=== PATIENT | female | born 1960 | race African-American/Black ===

== ENCOUNTER 2019-07-09 15:00 | Inpatient (IN) | payer MEDICAID ==
[~2019-07-09] VITALS: Ht 165.1 cm; Wt 69.8 kg
[2019-07-09] MEDS ORDERED: ASPirin 81 mg TAB PO ONE (15:30)
[2019-07-09 16:14] LABS: Hemoglobin 9.5 g/dL (12.2-16.2)
[2019-07-09 16:15] LABS: Hematocrit 29.2 % (36.0-46.0); Mean Corpuscular Hemoglobin 30.4 pg (28.0-32.0); Mean Corpuscular Hgb Conc. 32.7 g/dL (32.0-36.0); Mean Corpuscular Volume 93.1 fL (80.0-100.0); Platelet Count (auto) 55 10^3/uL (140-450); Red Blood Cells 3.13 10^6/uL (4.0-5.20); White Blood Cell 12.1 10^3/uL (4.4-10.8)
[2019-07-09 16:25] LABS: Alanine Aminotransferase 25 U/L (13-56); Albumin 2.3 g/dL (3.4-5.0); Anion Gap 10 (5-15); Aspartate Aminotransferase 121 U/L (15-37); BUN/Creatinine Ratio 22.4; Basophils % (manual) 0 (0.0-2.0); Blast Cells 0; Blood Urea Nitrogen 19 mg/dL (7-18); Carbon Dioxide 25 mmol/L (21-32); Chloride 103 mmol/L (98-107); Eosinophils % (manual) 0 (0-7); GFR African American 88 mL/min; GFR Non-African American 73 mL/min; Glucose 78 mg/dL (74-106); Magnesium 2.3 mg/dL (1.6-2.6); Myelocytes % 0; Potassium 4.1 mmol/L (3.5-5.1); Promyelocytes % 0; Reactive Lymphocytes 0; Sodium 138 mmol/L (136-145)
[2019-07-09 16:28] LABS: Alkaline Phosphatase 314 U/L (45-117); Bilirubin, Total 1.5 mg/dL (0.2-1.0); Total Protein 7.4 g/dL (6.4-8.2)
[2019-07-09 16:33] LABS: INR 1.51 (0.9-1.15); Partial Thromboplastin Time 32.2 sec (23.64-32.05)
[2019-07-09 17:01] LABS: Calcium 14.1 mg/dL (8.5-10.1)
[2019-07-09 17:24] LABS: Band Neutrophils % (manual) 1; Monocytes % (manual) 4 (0-12)
[2019-07-09 17:29] LABS: Lymphocytes % (manual) 54 (10.0-50.0); Metamyelocytes % 1
[2019-07-09] MEDS ORDERED: SODIUM CHLORIDE 0.9% 1,000 ML IV ONE (18:45)
[2019-07-09] MEDS ORDERED: NITROGLYCERIN 0.4 MG SL TAB SL PRN (19:15)
[2019-07-09] MEDS ORDERED: ACETAMINOPHEN 500 MG TAB PO PRN (19:15)
[2019-07-09] MEDS ORDERED: MORPHINE SULF INJ 2 MG/ML SYRINGE 1ML IV PRN ×2 (19:15)
[2019-07-09] MEDS: SODIUM CHLORIDE 0.9% 1,000 ML IV SCH (19:46)
[2019-07-09] MEDS: ONDANSETRON HCL 4 MG/2 ML VIAL IV PRN (20:32)
[2019-07-09] MEDS: PIPERACILLIN-TAZO 4.5GM 100 ML IV SCH (22:06)
[2019-07-09] MEDS: METOPROLOL TARTRATE 50 MG TAB PO SCH (22:08)
[2019-07-09 23:38] VITALS: BP 124/71
--- NOTE | 2019-07-09 23:38 | NUR ---
Admit to [facility] Blankenship admitted to [facility] via gurney on telemetry monitor, and portable 02. Patient transferred to bed, connected to unit monitoring and oxygen, and weighed by bed scale. Patient oriented to Aimee hoang RN, unit, room, bed, and unit policies regarding patient care and visiting hours. All questions and concerns addressed, patient verbalized understanding. NOTE: PATIENT IS AWAKE, ALERT AND ORIENTED X4. REPORTS SOB. ON 4L N/C POX 96%. PHYSICAL ASSESSMENT COMPLETED, SEE INTERVENTIONS. NO OPEN WOUNDS.
[2019-07-10] MEDS: SODIUM CHLORIDE 0.9% 1,000 ML IV SCH (01:52)
[2019-07-10 04:00] VITALS: BP 110/59
[2019-07-10] MEDS: PIPERACILLIN-TAZO 4.5GM 100 ML IV SCH ×3 (05:46→21:47)
[2019-07-10 07:53] VITALS: BP 102/66
--- NOTE | 2019-07-10 08:00 | NUR ---
Opening Shift Note Assumed care of patient, awake and alert. SOB on exertion, saturation 95% at 4 LPM oxygen via nasal cannula. See interventions for complete assessment. Bed locked on low position, side rails up x2, bed alarms on at all times, call velasquez within reach, instructed on POC and to call for assist PRN, will continue to monitor for changes Q1hr and PRN.
[2019-07-10 10:32] LABS: Hematocrit 28.2 % (36.0-46.0); Platelet Count (auto) 45 10^3/uL (140-450)
--- NOTE | 2019-07-10 10:36 | NUR ---
Dr Hernandez at bedside, updated on patient's status. Patient seen and examined. Received verbal order to give patient Zometa 4 mg IV once. Orders read back and verified. Will carry out.
[2019-07-10 10:39] LABS: Basophils % (manual) 0 (0.0-2.0); Blast Cells 0; Metamyelocytes % 0; Myelocytes % 0; Promyelocytes % 0; Reactive Lymphocytes 0; Red Cell Distribution Width 28.6 % (11.8-14.3)
[2019-07-10 10:40] LABS: Albumin 2.3 g/dL (3.4-5.0); Potassium 3.5 mmol/L (3.5-5.1)
--- NOTE | 2019-07-10 10:40 | NUR ---
Received call from patient's daughter Mark who is able to provide password. Updated on patient's status and POC, verbalized understanding. All questions and concerns addressed.
[2019-07-10] MEDS ORDERED: ZOLEDRONIC ACID 4 MG in SODIUM CHL 0.9% 100 ML IV ONE (10:45)
[2019-07-10 10:47] LABS: INR 1.59 (0.9-1.15); Partial Thromboplastin Time 37.1 sec (23.64-32.05)
[2019-07-10 10:52] LABS: BUN/Creatinine Ratio 21.4; Bilirubin, Total 1.6 mg/dL (0.2-1.0); Phosphorus 2.8 mg/dL (2.5-4.90)
[2019-07-10 11:00] LABS: Band Neutrophils % (manual) 1; Eosinophils % (manual) 1 (0-7); Lymphocytes % (manual) 46 (10.0-50.0); Monocytes % (manual) 7 (0-12)
[2019-07-10 11:02] LABS: Calcium 13.9 mg/dL (8.5-10.1)
[2019-07-10] MEDS: METOPROLOL TARTRATE 50 MG TAB PO SCH (11:17)
[2019-07-10] MEDS: FAMOTIDINE 20 MG TAB PO SCH (11:17)
--- NOTE | 2019-07-10 11:18 | NUR ---
Awaiting for pharmacy to send Zometa, called pharmacy and spoke to Margie.
[2019-07-10 11:23] LABS: White Blood Cell 6.2 10^3/uL (4.4-10.8)
[2019-07-10 11:49] VITALS: BP 122/75
--- NOTE | 2019-07-10 14:00 | NUR ---
Authorization for use or disclosure of health information faxed to [facility] by community arts worker Shauna.
--- NOTE | 2019-07-10 15:06 | NUR ---
Paged Dr Hillary Mosquera regarding patient's increasing SOB, RR 30's, chest xray report showing increasing pleural effusion. Awaiting call back.
--- NOTE | 2019-07-10 15:15 | NUR ---
Received call from Dr Hillary Mosquera, updated on patient's status, informed of patient SOB and respiratory status. verbalized understanding and states "Let me open my computer and I will call you back."
[2019-07-10 15:52] VITALS: BP 112/66
[2019-07-10] MEDS ORDERED: SODIUM CHLORIDE 0.9% 1,000 ML IV SCH (16:15)
[2019-07-10] MEDS ORDERED: FUROSEMIDE 20 MG/2 ML VIAL IV ONE (16:15)
[2019-07-10] MEDS: METOPROLOL TARTRATE 25 MG TAB PO SCH ×2 (16:15→21:48)
--- NOTE | 2019-07-10 16:15 | NUR ---
Received call from Dr Mosquera, updated on patient's respiratory status. Will carry out new orders.
[2019-07-10] MEDS ORDERED: FUROSEMIDE 100 MG/10ML VIAL IV ONE (16:45)
--- NOTE | 2019-07-10 17:28 | NUR ---
Patient refused blood draw at this time, will try after an hour.
--- NOTE | 2019-07-10 18:30 | NUR ---
Paged Dr Lam regarding patient's ABG result and respiratory status. Awaiting call back.
--- NOTE | 2019-07-10 18:50 | NUR ---
Med rec done, information obtained from daughter Mark.
[2019-07-10] MEDS ORDERED: PROM25TA5 PO (18:51)
[2019-07-10] MEDS ORDERED: CARV3.1240 PO (18:52)
[2019-07-10] MEDS ORDERED: ALBU0.084 NEB (18:53)
--- NOTE | 2019-07-10 19:00 | NUR ---
Received call from Dr Lam, updated on patient's status. Informed of patient's SOB, RR 30's, ABG result, chest xray. MD verbalized understanding and states "I will see patient in the morning."
[2019-07-10 19:13] LABS: Hemoglobin 9.2 g/dL (12.2-16.2)
[2019-07-10 19:15] LABS: Hematocrit 28.4 % (36.0-46.0); Mean Corpuscular Hemoglobin 30.5 pg (28.0-32.0); Mean Corpuscular Hgb Conc. 32.5 g/dL (32.0-36.0); Mean Corpuscular Volume 93.8 fL (80.0-100.0); Platelet Count (auto) 46 10^3/uL (140-450); Red Blood Cells 3.02 10^6/uL (4.0-5.20)
[2019-07-10 19:19] LABS: Red Cell Distribution Width 28.2 % (11.8-14.3)
[2019-07-10 19:22] LABS: Basophils % (manual) 0 (0.0-2.0); Blast Cells 0; Metamyelocytes % 0; Myelocytes % 0; Promyelocytes % 0; Reactive Lymphocytes 0
[2019-07-10 19:31] LABS: Potassium 3.4 mmol/L (3.5-5.1)
[2019-07-10 19:34] LABS: Albumin 2.2 g/dL (3.4-5.0); BUN/Creatinine Ratio 21.1
[2019-07-10 19:37] LABS: Bilirubin, Total 1.7 mg/dL (0.2-1.0); Total Protein 7.1 g/dL (6.4-8.2)
[2019-07-10 19:41] LABS: Calcium 14.1 mg/dL (8.5-10.1)
[2019-07-10 20:00] VITALS: BP 152/84
--- NOTE | 2019-07-10 20:00 | NUR ---
SHIFT OPENING NOTE RECEIVED PATIENT LAYING IN BED WITH EYES CLOSED. APPEARS LETHARGIC BUT OPENS EYES WITH LIGHT TOUCH. ALERT AND ORIENTED X4 WITH PERIODS OF CONFUSION. SOB NOTED ON 4L N/C DIMINISHED LUNG SOUNDS. DUFF CATH INFUSING YELLOW URINE TO GRAVITY. INSTRUCTED ON POC AND TO CALL FOR ASSIST NEEDED. BED IS IN THE LOWEST POSITION WITH SIDE RAILS UP X2, CALL LIGHT IS WITHIN REACH.
[2019-07-10] MEDS ORDERED: POTASSIUM CHL 20 Meq TABLET PO ONE (20:15)
[2019-07-10] MEDS ORDERED: methylPREDNISolone SOD SUCC 125 MG/2 ML VL IV ONE (20:15)
[2019-07-10] MEDS ORDERED: IPRATROPIUM BROM 0.5 MG/2.5ML INH SOL NEB PRN (20:15)
[2019-07-10 20:27] VITALS: BP 112/66
[2019-07-10 20:34] LABS: Band Neutrophils % (manual) 1; Lymphocytes % (manual) 45 (10.0-50.0)
[2019-07-10 20:35] LABS: Eosinophils % (manual) 3 (0-7); Monocytes % (manual) 3 (0-12)
[2019-07-10] MEDS: ATORVASTATIN 20 MG TAB PO SCH (21:48)
[2019-07-10] MEDS ORDERED: POTASSIUM CHL 20 Meq TABLET PO SCH (22:00)
[2019-07-10 22:17] LABS: Albumin 2.2 g/dL (3.4-5.0); Potassium 3.3 mmol/L (3.5-5.1)
[2019-07-10 22:30] LABS: Bilirubin, Total 1.7 mg/dL (0.2-1.0); Total Protein 7.1 g/dL (6.4-8.2)
[2019-07-10] MEDS ORDERED: ALBUTEROL SULF 2.5 MG/0.5ML(0.5%) NEB SOLN NEB PRN (22:45)
[2019-07-10 23:03] LABS: BUN/Creatinine Ratio 21.6
[2019-07-10] MEDS: LEVALBUTEROL HCL 1.25 MG/3 ML NEB NEB SCH (23:45)
--- NOTE | 2019-07-10 23:47 | NUR ---
RT NOTE PT WAS SEEN BY RT FOR HHN TX. PT TOLERATES WELL VIA MASK. NO ADVERSE REACTION NOTED. CONT ORDERED. Addendum: 07/10/19 at 2348 by Danni Rogers RT Amended: Links added.
[2019-07-11 00:03] VITALS: BP 137/77
--- NOTE | 2019-07-11 01:00 | NUR ---
ROUNDS PATIENT IS QUIETLY LAYING IN BED SLEEPING. NO SOB, DISTRESS OR PAIN NOTED. WILL CONTINUE TO CLOSELY MONITOR.
[2019-07-11 03:52] VITALS: BP 122/73
--- NOTE | 2019-07-11 05:20 | NUR ---
LAB UNABLE TO DRAW PATIENT WILL COME BACK LATER TO ATTEMPT AGAIN
[2019-07-11] MEDS: PIPERACILLIN-TAZO 4.5GM 100 ML IV SCH ×3 (05:33→21:12)
--- NOTE | 2019-07-11 05:35 | NUR ---
MORNING HYGIENE CARE FULL BED BATH PERFORMED USING WARM SOAPY WASH CLOTHES. GOWN CHANGED. DUFF AND GEREMIAS CARE DONE. PARTIAL LINEN CHANGED. PATIENT REPOSITIONED FOR COMFORT. TOLERATED IT WELL.
--- NOTE | 2019-07-11 06:55 | NUR ---
END OF SHIFT PATIENT IS QUIETLY LAYING IN BED SLEEPING. NO SOB OR DISTRESS NOTED. WILL GIVE REPORT AND ENDORSE CARE TO THE DAY SHIFT RN.
[2019-07-11] MEDS: LEVALBUTEROL HCL 1.25 MG/3 ML NEB NEB SCH ×3 (06:56→18:40)
[2019-07-11 07:45] VITALS: BP 104/60
--- NOTE | 2019-07-11 07:45 | NUR ---
OPENING SHIFT NOTE: Received report from NOC RNMony. Assumed care of patient. Received patient lying in bed, sleeping, connected to bedside monitor with no s/s of distress noted. Patient is lethargic, but responds to name and answers questions appropriately. Patient on 4L NC with O2 sats 94%. Menezes catheter in place draining to gravity yellow urine. Lt wrist #22 PIV with antibiotic infusing and appears asymptomatic and intact. Flushes well and is patent. Bed is in lowest position, rails x3 up and call light within reach. Updated on plan of care. Will continue to monitor q1hr/prn.
[2019-07-11 09:37] LABS: Hematocrit 29.3 % (36.0-46.0); Hemoglobin 9.4 g/dL (12.2-16.2); Mean Corpuscular Hemoglobin 30.6 pg (28.0-32.0); Mean Corpuscular Hgb Conc. 32.1 g/dL (32.0-36.0); Mean Corpuscular Volume 95.3 fL (80.0-100.0); Platelet Count (auto) 42 10^3/uL (140-450); Red Blood Cells 3.07 10^6/uL (4.0-5.20)
--- NOTE | 2019-07-11 09:37 | NUR ---
Dr Fernandez at bedside to see patient. Orders received.
--- NOTE | 2019-07-11 09:56 | NUR ---
Pau, electronic development technician at bedside.
[2019-07-11] MEDS: FAMOTIDINE 20 MG TAB PO SCH (10:00)
[2019-07-11] MEDS: METOPROLOL TARTRATE 25 MG TAB PO SCH ×2 (10:00→21:13)
[2019-07-11 10:27] LABS: Red Cell Distribution Width 28.3 % (11.8-14.3)
[2019-07-11 10:29] LABS: White Blood Cell 7.1 10^3/uL (4.4-10.8)
[2019-07-11 10:30] LABS: Basophils % (manual) 0 (0.0-2.0); Blast Cells 0; Myelocytes % 0; Promyelocytes % 0; Reactive Lymphocytes 0
[2019-07-11 10:35] LABS: Band Neutrophils % (manual) 2; Eosinophils % (manual) 4 (0-7); Lymphocytes % (manual) 51 (10.0-50.0); Metamyelocytes % 1; Monocytes % (manual) 4 (0-12)
[2019-07-11] MEDS: SODIUM CHLORIDE 0.9% 1,000 ML IV SCH ×2 (11:00→17:40)
[2019-07-11] MEDS ORDERED: FUROSEMIDE 100 MG/10ML VIAL IV ONE (11:00)
[2019-07-11] MEDS ORDERED: POTASSIUM CHL 20 Meq TABLET PO ONE (11:15)
--- NOTE | 2019-07-11 11:30 | NUR ---
[place] US at bedside.
[2019-07-11 11:45] VITALS: BP 123/73
--- NOTE | 2019-07-11 11:45 | NUR ---
Notified by US [place] that patient has enough fluid for thoracentesis. Will attempt to get consent from patient or daughter if patient is unable to.
--- NOTE | 2019-07-11 11:45 | NUR ---
Dr Krzysztof Mosquera at bedside to see patient. Orders received.
[2019-07-11] MEDS: POTASSIUM CHL 20 Meq TABLET PO SCH (12:09)
--- NOTE | 2019-07-11 12:34 | NUR ---
CARLTON Dillon RN at bedside. Attempting to get consent for thoracentesis. Patient verbally agrees, but unable to sign paper. Telephone consent then obtained from daughter, Mark Moya.
[2019-07-11] MEDS ORDERED: diphenhdrAMINE HCL 50 MG/1 ML VL IV ONE (13:00)
--- NOTE | 2019-07-11 13:13 | NUR ---
Patient refused thoracentesis. Stated she has cancer and doesn't want any thing done. Left message with Dr Krzysztof Mosquera to inform
--- NOTE | 2019-07-11 13:15 | NUR ---
T/C to patient's daughter, updated her on patient's refusal of thoracentesis. Asked patient's daughter if she ever had any discussion about patient wanting to have a breathing tube or not. Daughter was unaware. Informed daughter that physicians may call and discuss plans of care with her.
--- NOTE | 2019-07-11 13:23 | NUR ---
T/C from Dr Krzysztof Mosquera. Updated MD on patient's refusal of thoracentesis and phone call with patient's daughter. MD states will call patient's daughter and discuss plan of care later.
--- NOTE | 2019-07-11 13:31 | NUR ---
US tech at bed to do lower extremity venous study to r/t DVT.
[2019-07-11 15:45] VITALS: BP 101/67
--- NOTE | 2019-07-11 17:00 | NUR ---
Spoke to Dr Krzysztof Mosquera who stated he spoke with daughter and wishes to keep patient FULL code.
[2019-07-11] MEDS: FUROSEMIDE 100 MG/10ML VIAL IV SCH (19:15)
--- NOTE | 2019-07-11 19:24 | NUR ---
CLOSING SHIFT NOTE: Patient sitting in bed, calling out for help. Patient states she feels like she's going crazy but can't further elaborate. Patient unable to tell nursing where she is at and the situation. Report given to NOC Mony GOMEZ. Endorsed care of patient.
--- NOTE | 2019-07-11 19:55 | NUR ---
SHIFT OPENING NOTE RECEIVED PATIENT LAYING IN BED WITH EYES CLOSED. APPEARS LETHARGIC BUT OPENS EYES WITH LIGHT TOUCH. ALERT AND ORIENTED X4 WITH PERIODS OF CONFUSION. SOB NOTED ON 6L N/C DIMINISHED LUNG SOUNDS. DUFF CATH INFUSING YELLOW URINE TO GRAVITY. INSTRUCTED ON POC AND TO CALL FOR ASSIST NEEDED. BED IS IN THE LOWEST POSITION WITH SIDE RAILS UP X2, CALL LIGHT IS WITHIN REACH.
[2019-07-11 20:00] VITALS: BP 123/67
[2019-07-11] MEDS: ATORVASTATIN 20 MG TAB PO SCH (21:12)
[2019-07-12] VITALS: BP 124/67
[2019-07-12] MEDS: LEVALBUTEROL HCL 1.25 MG/3 ML NEB NEB SCH ×4 (01:08→18:19)
[2019-07-12 04:00] VITALS: BP 99/55
[2019-07-12 04:47] LABS: Basophils # (auto) 0.1 10 ^3/uL (0-0.2); Basophils % (auto) 0.8 % (0.0-2.0); Eosinophils # (auto) 0.2 10 ^3/uL (0-0.8); Eosinophils % (auto) 1.2 % (0.0-7.0); Hematocrit 25.9 % (36.0-46.0); Hemoglobin 8.2 g/dL (12.2-16.2); Lymphocytes # (auto) 5.2 10 ^3/uL (0.4-5.4); Mean Corpuscular Hemoglobin 29.6 pg (28.0-32.0); Mean Corpuscular Hgb Conc. 31.7 g/dL (32.0-36.0); Mean Corpuscular Volume 93.5 fL (80.0-100.0); Monocytes # (auto) 1.4 10 ^3/uL (0-1.3); Neutrophils # (auto) 7.2 10 ^3/uL (1.6-8.6); Platelet Count (auto) 47 10^3/uL (140-450); Red Blood Cells 2.76 10^6/uL (4.0-5.20); White Blood Cell 14.2 10^3/uL (4.4-10.8)
[2019-07-12 04:48] LABS: Nucleated Red Blood Cells % 25.6 %; Red Cell Distribution Width 28.4 % (11.8-14.3)
[2019-07-12] MEDS: SODIUM CHLORIDE 0.9% 1,000 ML IV SCH ×2 (04:51→04:53)
[2019-07-12] MEDS: FUROSEMIDE 100 MG/10ML VIAL IV SCH ×2 (04:52→18:39)
[2019-07-12] MEDS: PIPERACILLIN-TAZO 4.5GM 100 ML IV SCH ×3 (04:52→22:49)
--- NOTE | 2019-07-12 07:10 | NUR ---
END OF SHIFT PATIENT IS QUIETLY LAYING IN BED SLEEPING. NO SOB OR DISTRESS NOTED. WILL GIVE REPORT AND ENDORSE CARE TO THE DAY SHIFT RN.
--- NOTE | 2019-07-12 07:30 | NUR ---
OPENING SHIFT NOTE: Received report from NOC RNMony. Assumed care of patient. Received patient lying in bed, sleeping, connected to bedside monitor with no s/s of distress noted. Patient is lethargic, but responds to name and answers questions appropriately. Patient on 6L NC with O2 sats 95%. Menezes catheter in place draining to gravity yellow urine. Lt wrist #22 PIV with IVF of NS @150ml/hr infusing and appears asymptomatic and intact. Flushes well and is patent. Bed is in lowest position, rails x3 up and call light within reach. Updated on plan of care. Will continue to monitor q1hr/prn.
[2019-07-12 07:44] LABS: Albumin 2.1 g/dL (3.4-5.0); BUN/Creatinine Ratio 21.4; Calcium 12.8 mg/dL (8.5-10.1)
[2019-07-12 07:46] LABS: Bilirubin, Total 1.5 mg/dL (0.2-1.0); Total Protein 6.8 g/dL (6.4-8.2)
[2019-07-12 07:49] LABS: Potassium 2.8 mmol/L (3.5-5.1)
--- NOTE | 2019-07-12 07:51 | NUR ---
CRITICAL LAB: Call from lab. Potassium 2.8. Paged placed to Dr Krzysztof Mosquera for orders.
[2019-07-12 08:00] VITALS: BP 124/69
--- NOTE | 2019-07-12 08:20 | NUR ---
T/C from Dr Krzysztof Mosquera. Informed MD of potassium level, updated on patient's current neuro status and respiratory status. Orders received for IVF and potassium replacement.
[2019-07-12] MEDS ORDERED: POTASSIUM CHLORIDE 40 MEQ, LIDOCAINE 1% (LOCAL ANESTH.) 4 ML in SODIUM CHL 0.9% 100 ML IV ONE (08:30)
[2019-07-12] MEDS: D5W/SOD CHL 0.45%/KCL 40MEQ 1,000 ML IV SCH ×2 (09:22→18:39)
[2019-07-12] MEDS: METOPROLOL TARTRATE 25 MG TAB PO SCH ×2 (10:00→22:50)
[2019-07-12] MEDS: FAMOTIDINE 20 MG TAB PO SCH (10:00)
[2019-07-12] MEDS: POTASSIUM CHL 20 Meq TABLET PO SCH (10:00)
--- NOTE | 2019-07-12 11:15 | NUR ---
Dr Fernandez on unit to see patient. Updates given to MD. No new orders.
[2019-07-12 12:00] VITALS: BP 124/73
[2019-07-12] MEDS: HYDROcodone-ACET 5/325MG TAB PO PRN (15:49)
--- NOTE | 2019-07-12 15:55 | NUR ---
Patient c/o pain to chest 11/16. Medicated patient with [place] as ordered.
[2019-07-12 16:00] VITALS: BP 136/77
--- NOTE | 2019-07-12 19:00 | NUR ---
CLOSING SHIFT NOTE: Patient resting quietly in bed, no s/s of distress. Pain well controlled with Alba given earlier. IVF of D5 0.45NS + 40meq KCl running at 100ml/hr. Menezes draining to gravity clear yellow urine. Report to be given to to Molly MORIN RN.
[2019-07-12 20:00] VITALS: BP 131/72
--- NOTE | 2019-07-12 20:30 | NUR ---
MD at bedside and did facetime with daughter and pt on pt's cell phone. Pt agreed to have thoracentesis on Sunday with daughter and MD listening. Pt states she is not feeling well. Will continue to monitor.
[2019-07-12] MEDS: ATORVASTATIN 20 MG TAB PO SCH (22:49)
[2019-07-13] VITALS: BP 120/68
[2019-07-13] MEDS: LEVALBUTEROL HCL 1.25 MG/3 ML NEB NEB SCH ×4 (00:12→18:53)
[2019-07-13] MEDS: HYDROcodone-ACET 5/325MG TAB PO PRN ×2 (00:57→23:51)
[2019-07-13 04:00] VITALS: BP 115/67
[2019-07-13] MEDS: D5W/SOD CHL 0.45%/KCL 40MEQ 1,000 ML IV SCH ×2 (04:30→15:01)
[2019-07-13] MEDS: FUROSEMIDE 100 MG/10ML VIAL IV SCH ×2 (06:00→18:00)
[2019-07-13] MEDS: PIPERACILLIN-TAZO 4.5GM 100 ML IV SCH ×3 (06:00→23:50)
[2019-07-13 06:06] LABS: Hematocrit 25.7 % (36.0-46.0); Hemoglobin 8.3 g/dL (12.2-16.2); Mean Corpuscular Hemoglobin 30.5 pg (28.0-32.0); Mean Corpuscular Hgb Conc. 32.4 g/dL (32.0-36.0); Mean Corpuscular Volume 94.2 fL (80.0-100.0); Platelet Count (auto) 39 10^3/uL (140-450); Red Blood Cells 2.73 10^6/uL (4.0-5.20)
[2019-07-13 06:21] LABS: Albumin 2.2 g/dL (3.4-5.0); BUN/Creatinine Ratio 14.9; Bilirubin, Total 1.4 mg/dL (0.2-1.0); Calcium 11.4 mg/dL (8.5-10.1); Total Protein 6.7 g/dL (6.4-8.2)
[2019-07-13 06:27] LABS: Red Cell Distribution Width 27.6 % (11.8-14.3)
[2019-07-13 06:28] LABS: Basophils % (manual) 0 (0.0-2.0); Blast Cells 0; Metamyelocytes % 0; Myelocytes % 0; Promyelocytes % 0; Reactive Lymphocytes 0
[2019-07-13 06:49] LABS: Potassium 2.9 mmol/L (3.5-5.1)
--- NOTE | 2019-07-13 07:45 | NUR ---
OPENING SHIFT NOTE: Received report from NOC RN, Molly. Assumed care of patient. Received patient lying in bed, sleeping, connected to bedside monitor with no s/s of distress noted. Patient is lethargic, but responds to name and answers questions appropriately. Patient on 5L NC with O2 sats 98%. Menezes catheter in place draining to gravity yellow urine. Lt wrist #22 PIV with IVF of D5 0.45NS + 40meq KCl @100ml/hr infusing and appears asymptomatic and intact. Flushes well and is patent. Bed is in lowest position, rails x2 up and call light within reach. Updated on plan of care. Will continue to monitor q1hr/prn.
[2019-07-13 08:00] VITALS: BP 111/63
--- NOTE | 2019-07-13 08:04 | NUR ---
Pt was restless this shift. Martinez was leaking, repositioned and saline added to martinez balloon. No other major changes this shift. Report given, care endorsed.
--- NOTE | 2019-07-13 08:04 | NUR ---
Paged Dr Krzysztof Mosquera in regards to potassium level 2.9
--- NOTE | 2019-07-13 09:00 | NUR ---
T/C from Dr Krzysztof Mosquera. Informed MD of potassium level 2.9. MD states he will place orders in for replacement.
[2019-07-13 09:59] LABS: Band Neutrophils % (manual) 6; Eosinophils % (manual) 3 (0-7); Lymphocytes % (manual) 41 (10.0-50.0); Monocytes % (manual) 9 (0-12)
[2019-07-13 10:17] LABS: White Blood Cell 3.6 10^3/uL (4.4-10.8)
[2019-07-13] MEDS: METOPROLOL TARTRATE 25 MG TAB PO SCH ×2 (10:37→23:57)
[2019-07-13] MEDS: POTASSIUM CHL 20 Meq TABLET PO SCH (10:38)
[2019-07-13] MEDS: FAMOTIDINE 20 MG TAB PO SCH (10:38)
--- NOTE | 2019-07-13 10:50 | NUR ---
Administered 1000 medications after verifying patient and five rights. Patient able to swallow all pills without difficulty except for potassium. Patient refused to take full 40meq dose and only took 20meq.
[2019-07-13] MEDS ORDERED: ACETAMINOPHEN 500 MG TAB PO PRN (11:30)
[2019-07-13] MEDS ORDERED: POTASSIUM CHL 20 Meq TABLET PO SCH (11:30)
[2019-07-13] MEDS: POTASSIUM CHL 20MEQ/100ML 100 ML IV SCH ×3 (11:51→15:30)
[2019-07-13 11:56] VITALS: BP 134/70
--- NOTE | 2019-07-13 12:02 | NUR ---
electrical technician at bedside.
--- NOTE | 2019-07-13 12:05 | NUR ---
Patient refusing to have abdominal ultrasound done.
[2019-07-13] MEDS: ONDANSETRON HCL 4 MG/2 ML VIAL IV PRN ×2 (14:26→23:50)
--- NOTE | 2019-07-13 15:32 | NUR ---
Spoke to radiology aide. Patient inconsistent with following commands, cannot tolerated lying still or flat for head CT. Will reassess tomorrow.
[2019-07-13 16:00] VITALS: BP 104/63
[2019-07-13] MEDS ORDERED: POTASSIUM CHL 20 Meq TABLET PO ONE (16:00)
--- NOTE | 2019-07-13 16:58 | NUR ---
Patient complaining of pain at IV site on left wrist. No erythema noted, but tenderness to IV site. IV discontinued with catheter intact and pressure dressing applied. New #22 PIV started to left thumb/hand after one attempt.
--- NOTE | 2019-07-13 17:05 | NUR ---
Dr Merritt at bedside to see patient.
--- NOTE | 2019-07-13 17:08 | NUR ---
Patient stating she wants to go home and is tired of being in the hospital. Patient is currently A&Ox4. Patient asked if she wants to stay at hospital and continue receiving medical treatment and try to get better, patient states she has cancer and just is tired and wants to go home. Patient asked if she ever had a discussion with her children and family about her wishes if she were to ever need assistance breathing or her heart stop, patient said no. Patient asked if she would ever want a breathing tube and be placed on a machine to help her breathe and patient said no. Patient asked if her heart stopped beating would she want heroic measures to include chest compressions and shocking, patient said no. RN informed patient that she should have a conversation with her family and doctor regarding her wishes. Patient just states that she wants to go home.
--- NOTE | 2019-07-13 18:53 | NUR ---
CLOSING SHIFT NOTE: Patient resting quietly in bed, no s/s of distress and connected to bedside monitor.. Pain well controlled with Tylenol given earlier. Patient still stating she wants to go home. IVF of D5 0.45NS + 40meq KCl running at 100ml/hr in new #22 PIV in left hand. Menezes draining to gravity clear yellow urine. 1800 Lasix held due to low blood pressure. Report to be given to to NOC Molly GOMEZ.
[2019-07-13 20:00] VITALS: BP 109/65
[2019-07-13] MEDS: POTASSIUM CHL 10% (20 MEQ/15ML) 15ml ORAL SOLN PO SCH (22:00)
--- NOTE | 2019-07-13 23:28 | NUR ---
Pt states severe pain. Noted Delta and Morphine were discontinued by Dr. Hector. Unable to find reason in progress noted. Paged MD for orders, Dr Beard covering and gave OK to restart prior order of Delta. Tylenol has already been given and has not helped pt's pain. Will put in new order and continue to monitor.
[2019-07-13] MEDS: ATORVASTATIN 20 MG TAB PO SCH (23:50)
[2019-07-14] VITALS (7 sets, daily range): BP systolic 107–130; BP diastolic 60–70
[2019-07-14] MEDS: LEVALBUTEROL HCL 1.25 MG/3 ML NEB NEB SCH ×4 (00:29→17:55)
[2019-07-14 05:50] LABS: INR 2.03 (0.9-1.15); Partial Thromboplastin Time 46.7 sec (23.64-32.05)
[2019-07-14] MEDS: FUROSEMIDE 100 MG/10ML VIAL IV SCH ×2 (06:00→18:10)
[2019-07-14] MEDS: PIPERACILLIN-TAZO 4.5GM 100 ML IV SCH ×3 (06:00→21:23)
[2019-07-14] MEDS: D5W/SOD CHL 0.45%/KCL 40MEQ 1,000 ML IV SCH ×2 (07:59→10:30)
[2019-07-14 08:15] LABS: BUN/Creatinine Ratio 11.2
--- NOTE | 2019-07-14 08:15 | NUR ---
PATIENT REFUSING CT SCAN AT THIS TIME PATIENT EDUCATED ON REASONING BEHIND SCAN. PATIENT AOX3-4.
[2019-07-14 08:16] LABS: Albumin 1.9 g/dL (3.4-5.0); Bilirubin, Total 1.5 mg/dL (0.2-1.0); Calcium 9.8 mg/dL (8.5-10.1); Total Protein 6.3 g/dL (6.4-8.2)
--- NOTE | 2019-07-14 08:16 | NUR ---
Pt remained stable. Pain medication helped pt tolerate sleep and rest. Pillows used for comfort and position. Pt stated last night that she was seeing monsters but realized they were not there. Report given to AM shift, care endorsed.
[2019-07-14 08:18] LABS: Potassium 6.5 mmol/L (3.5-5.1)
--- NOTE | 2019-07-14 08:19 | NUR ---
POTASSIUM LEVEL 6.5 IV FLUID WITH POTASSIUM IMMEDIATELY STOPPED. WILL INFORM
--- NOTE | 2019-07-14 08:23 | NUR ---
PT REFUSED TO BE TAKEN TO CT OR MRI. JASON GIBBONS AWARE
--- NOTE | 2019-07-14 08:38 | NUR ---
DR. SAVAGE PAGED AWAITING CALLBACK
--- NOTE | 2019-07-14 09:32 | NUR ---
DR. SAVAGE UPDATED ON PATIENT STATUS ORDERS RECEIVED
[2019-07-14] MEDS: METOPROLOL TARTRATE 25 MG TAB PO SCH ×2 (09:35→21:25)
[2019-07-14] MEDS: FAMOTIDINE 20 MG TAB PO SCH (09:35)
[2019-07-14] MEDS: POTASSIUM CHL 10% (20 MEQ/15ML) 15ml ORAL SOLN PO SCH (09:36)
[2019-07-14] MEDS: HYDROcodone-ACET 5/325MG TAB PO PRN ×2 (09:44→18:13)
--- NOTE | 2019-07-14 10:49 | NUR ---
DR. SAVAGE PAGED REGARIDING NEW POTASSIUM LEVEL. AWAITING CALLBACK
--- NOTE | 2019-07-14 11:15 | NUR ---
IV FLUIDS WITH 40 K RESTARTED PER LOW POTASSIUM LAB VALUE
--- NOTE | 2019-07-14 11:47 | NUR ---
LAB AT BEDSIDE FOR BLOOD DRAW
--- NOTE | 2019-07-14 12:41 | NUR ---
NUTRITION ASSESSMENT NOTES Please refer to link notes of nutrition screen form filed under the intervention section of the plan of care for further details. Est. Energy Needs: 7025-5568 kcal (20-25 kcal/kg BW). Est. Protein Needs: 70-84 gms/day (1.0-1.2 gms/kg BW). Will continue to monitor pertinent labs and reassess nutrient need prn Addendum: 07/14/19 at [address] Amended: Links added.
--- NOTE | 2019-07-14 13:16 | NUR ---
CHILD CARE ASSISTANT AT BEDSIDE
--- NOTE | 2019-07-14 13:32 | NUR ---
DR. FARFAN PAGED AWAITING CALLBACK
[2019-07-14] MEDS: SODIUM CHLORIDE 0.9% 1,000 ML IV SCH (15:32)
--- NOTE | 2019-07-14 16:06 | NUR ---
PLATELETS PER ULTRASOUND WHO SPOKE WITH DR. VILLEDA, DO NOT GIVE PATIENT PLATELETS AT THIS TIME. HAVE ON STANDBY AND ULTRASOUND WILL LET US KNOW IN HE MORNING WHEN TO GIVE PRIOR TO THE PROCEDURE IF THE PATIENT AGREES
--- NOTE | 2019-07-14 19:20 | NUR ---
OPENING NOTE PATIENT AWAKE IN BED. NO RESPIRATOR DISTRESS. COMPLETE ASSESSMENT UNDER INTERVENTIONS. WILL CONTINUE TO MONITOR.
[2019-07-14] MEDS: ATORVASTATIN 20 MG TAB PO SCH (21:23)
[2019-07-14] MEDS: POTASSIUM CHL 20 Meq TABLET PO SCH (21:23)
[2019-07-15] VITALS: BP 106/64
[2019-07-15] MEDS: LEVALBUTEROL HCL 1.25 MG/3 ML NEB NEB SCH ×2 (00:40→06:58)
--- NOTE | 2019-07-15 00:40 | NUR ---
Respiratory note: PT SEEN FOR SCHEDULED MED NEB TX AT 0040. MEDICATION HELD AT THIS TIME DUE TO PT FEELING NAUSEOUS AND IS CURRENTLY DRY HEAVING. RN IS AWARE. HR 114 RR 20 POX 94% ON 3L NASAL CANNULA.
--- NOTE | 2019-07-15 01:20 | NUR ---
PT SLEEPING NO DISTRESS NOTED. WILL CONTINUE TO MONITOR.
[2019-07-15] MEDS: ONDANSETRON HCL 4 MG/2 ML VIAL IV PRN (02:36)
--- NOTE | 2019-07-15 05:00 | NUR ---
LINEN CHANGE AND BED BATH PT RESTING IN BED. NO DISTRESS NOTED.
[2019-07-15] MEDS: SODIUM CHLORIDE 0.9% 1,000 ML IV SCH (05:48)
[2019-07-15] MEDS: PIPERACILLIN-TAZO 4.5GM 100 ML IV SCH (06:00)
[2019-07-15] MEDS: FUROSEMIDE 100 MG/10ML VIAL IV SCH (06:38)
[2019-07-15 07:16] VITALS: BP 124/69
--- NOTE | 2019-07-15 07:30 | NUR ---
Opening Shift Note Assumed care of patient, awake and alert. No S/S of pain. SOB, RR 30's, saturation 90's on 3 LPM oxygen via nasal. See interventions for complete assessment. Bed locked on low position, side rails up x2, bed alarms on at all times, call velasquez within reach, instructed on POC and to call for assist PRN, will continue to monitor for changes Q1hr and PRN.
[2019-07-15 08:00] VITALS: BP 113/71
[2019-07-15] MEDS: METOPROLOL TARTRATE 25 MG TAB PO SCH (09:18)
[2019-07-15] MEDS: FAMOTIDINE 20 MG TAB PO SCH (09:19)
[2019-07-15] MEDS: POTASSIUM CHL 20 Meq TABLET PO SCH ×2 (09:19→10:00)
--- NOTE | 2019-07-15 11:12 | NUR ---
Received call from Nga stating that transportation has been arranged at 1PM. Sissy also requested to keep patient's martinez catheter in.
--- NOTE | 2019-07-15 11:22 | NUR ---
Received another call from Nga stating "I spoke to the daughter and she wanted patient's martinez catheter out." Read back and verified.
--- NOTE | 2019-07-15 11:30 | NUR ---
Pt refused PT tx stating she was hungry. This WAVE GUIDE ASSEMBLER offered to return after she had eaten lunch, the pt tentatively agreed Addendum: 07/15/19 at 1149 by Fabio Mcknight WAVE GUIDE ASSEMBLER Amended: Links added.
--- NOTE | 2019-07-15 11:37 | NUR ---
assessment Patient is a 59 year old female who is in [facility]. Per patients daughter Hannah prior to admission patient lived home with her and functioned with assistance. Patient has a wheelchair, hospital bed, and girma lift for home use. Patients PCP is Dr Lemus. I informed Hannah patient has a consult for hospice. Buckbrittanie informed me that [facility] has already contacted her, but she would like a list of providers emailed to her. After reviewing list Hannah informed me she will stay with [facility]. All paperwork has been sent to [facility]. Per Zoey from [facility] she has set up transportation for 1pm. Per Zoey she has notified bedside RNEdelmira Young verbalized understanding and agreed to discharge plan home on hospice. Addendum: 07/15/19 at 1145 by Marie TAFOYA Amended: Links added.
[2019-07-15 11:53] VITALS: BP 124/71
[2019-07-15 12:27] VITALS: BP 124/71
--- NOTE | 2019-07-15 12:55 | NUR ---
Patient accidentally pulled out LT wrist IV. Pressure dressing applied.
--- NOTE | 2019-07-15 13:00 | NUR ---
Menezes catheter dc'd Patient being discharge home - hospice. Menezes discontinued with clean technique following deflation of balloon. Patient tolerated well with no complaints of pain. Continue care.
--- NOTE | 2019-07-15 13:10 | NUR ---
Discharge instructions and packet given to patient.
--- NOTE | 2019-07-15 13:15 | NUR ---
RN stated pt is discharged home. Addendum: 07/15/19 at 1321 by Fabio Mcknight SALES SERVICE REPRESENTATIVE Amended: Links added.
--- NOTE | 2019-07-15 13:25 | NUR ---
Discharge instructions given as ordered. All questions and concerns addressed. Patient verbalized understanding. Patient taken to vehicle via gurney with all personal belongings, accompanied by transport staff. No distress noted at time of departure.
== END 2019-07-15 13:25 | disposition hospice, home (50) | DRG 425 ==
LOC: EDBD 15:00 → ER 15:01 → OVERFLOW 19:33 → DOU IN ICU 23:19
PROVIDERS: ADMIT Nurse Practitioner Acute Care; ATTEND Internal Medicine
DX: E83.52 Hypercalcemia (principal); J96.21 Acute and chronic respiratory failure with hypoxia; G93.41 Metabolic encephalopathy; D61.818 Other pancytopenia; J90 Pleural effusion, not elsewhere classified; C79.51 Secondary malignant neoplasm of bone; C50.911 Malignant neoplasm of unspecified site of right female breast; D69.6 Thrombocytopenia, unspecified; E11.622 Type 2 diabetes mellitus with other skin ulcer; E87.2 Acidosis; D72.829 Elevated white blood cell count, unspecified; N18.3 Chronic kidney disease, stage 3 (moderate); D50.8 Other iron deficiency anemias; J45.909 Unspecified asthma, uncomplicated; E87.6 Hypokalemia; D63.8 Anemia in other chronic diseases classified elsewhere; E87.70 Fluid overload, unspecified; J45.901 Unspecified asthma with (acute) exacerbation; Z88.4 Allergy status to anesthetic agent; Z88.1 Allergy status to other antibiotic agents; Z85.3 Personal history of malignant neoplasm of breast; Z79.899 Other long term (current) drug therapy; I12.9 Hypertensive chronic kidney disease with stage 1 through stage 4 chronic kidney disease, or unspecified chronic kidney disease; L98.499 Non-pressure chronic ulcer of skin of other sites with unspecified severity
CPT/HCPCS: 36415; 36600; 71045; 76604; 76700; 80053; 80061; 82330; 82805; 82962; 83735; 83880; 84100; 84132; 84443; 84484; 85007; 85025; 85027; 85610; 85730; 86850; 86900; 86901; 87081; 87804; 93005; 93306; 93970; 94640; 95819; 96365; 96375; 97163; G0378; J2001; J2405; J2543; J3480; J3489

== ENCOUNTER 2019-07-17 12:36 | Inpatient (IN) | payer MEDICAID ==
[~2019-07-17] VITALS: Ht 167.6 cm; Wt 72.0 kg
[2019-07-17] VITALS (17 sets, daily range): BP systolic 54–111; BP diastolic 25–63
[~2019-07-17 12:36] MED LIST: ALBU0.084 NEB; CARV3.1240 PO; PROM25TA5 PO
[2019-07-17] MEDS ORDERED: SODIUM CHLORIDE 0.9% 1,000 ML IV ONE ×2 (13:27)
[2019-07-17] MEDS ORDERED: AZITHROMYCIN 500MG/ 250ML 250 ML IV ONE (13:30)
[2019-07-17] MEDS ORDERED: cefTRIAXone 1GM/50ML D5W 50 ML IV ONE (13:30)
[2019-07-17 13:41] LABS: Hemoglobin 7.5 g/dL (12.2-16.2)
[2019-07-17 13:43] LABS: Hematocrit 22.8 % (36.0-46.0); Mean Corpuscular Hemoglobin 30.7 pg (28.0-32.0); Mean Corpuscular Hgb Conc. 33.1 g/dL (32.0-36.0); Mean Corpuscular Volume 92.8 fL (80.0-100.0); Platelet Count (auto) 31 10^3/uL (140-450); Red Blood Cells 2.46 10^6/uL (4.0-5.20)
[2019-07-17 13:49] LABS: Albumin 1.9 g/dL (3.4-5.0); Calcium 8.6 mg/dL (8.5-10.1); Potassium 4.3 mmol/L (3.5-5.1)
[2019-07-17 13:58] LABS: Red Cell Distribution Width 29.1 % (11.8-14.3)
[2019-07-17 14:00] LABS: BUN/Creatinine Ratio 20.1; Basophils % (manual) 0 (0.0-2.0); Bilirubin, Total 3.1 mg/dL (0.2-1.0); Myelocytes % 0; Promyelocytes % 0; Reactive Lymphocytes 0; Total Protein 6.7 g/dL (6.4-8.2)
[2019-07-17] MEDS ORDERED: LORazepam 2MG/ML-1ML VIAL ONE (14:03)
[2019-07-17] MEDS ORDERED: LORazepam 2MG/ML-1ML VIAL IV ONE (14:15)
[2019-07-17 14:35] LABS: Urine Amorphous Crystal FEW /hpf (None Seen); Urine Bacteria FEW /hpf (None Seen); Urine Blood 2+ /uL (Negative); Urine Budding Yeast LOADED /hpf (None Seen); Urine WBC 330 /hpf (0 - 5); Urine WBC Clumps PRESENT /hpf (None Seen)
[2019-07-17 14:43] LABS: INR 2.76 (0.9-1.15); Partial Thromboplastin Time 64.4 sec (23.64-32.05)
[2019-07-17 14:50] LABS: Band Neutrophils % (manual) 3; Blast Cells 1; Eosinophils % (manual) 1 (0-7); Lymphocytes % (manual) 49 (10.0-50.0); Metamyelocytes % 2; Monocytes % (manual) 3 (0-12)
[2019-07-17] MEDS ORDERED: ETOMIDATE (2MG/ML) 20ML VIAL IV ONE ×2 (14:53→16:15)
[2019-07-17] MEDS ORDERED: SUCCINYLCHOLINE CHLORIDE 20 MG/ML 10ML VIAL IV ONE ×2 (14:53→16:15)
[2019-07-17] MEDS ORDERED: MIDAZOLAM DRIP 50 mg/50mL 50 ML IV ONE (14:53)
[2019-07-17] MEDS ORDERED: NOREPINEPHRINE 8 MG/250ML KIT 250 ML IV ONE (14:53)
[2019-07-17 14:59] LABS: White Blood Cell 11.5 10^3/uL (4.4-10.8)
[2019-07-17] MEDS ORDERED: NOREPINEPHRINE 8 MG/250ML KIT 250 ML IV SCH (15:13)
[2019-07-17] MEDS ORDERED: OSELTAMIVIR 75 MG CAP PO ONE (15:15)
[2019-07-17] MEDS ORDERED: VANCOMYCIN PER PHARMACY 0 MG IV SCH (15:15)
[2019-07-17] MEDS: MIDAZOLAM DRIP 50 mg/50mL 50 ML IV SCH (15:15)
[2019-07-17] MEDS ORDERED: VANCOMYCIN 1GM/250ML 250 ML IV ONE (15:15)
[2019-07-17] MEDS ORDERED: PROMETHAZINE HCL 25 MG/ML 1ML IV PRN (15:45)
--- NOTE | 2019-07-17 15:45 | NUR ---
RECEIVED PATIENT Patient received from ER without called report. Patient placed in room 112, transferred to ICU bed and connected to bedside monitor. Patient sedated on Versed GTT at 15mg/hr and infusing Levophed GTT through central line. Positive gag/cough reflex (hypoactive), pupils reactive to light, does not follow commands/withdrawal to pain. OG tube checked and verified via air bolus: clamped. Abdomen soft, nontender and non distended. Last bowel movement unknown. Menezes catheter draining to gravity cloudy yellow. Open wound to the sacral area with sacral Optifoam dressing placed. Will continue to monitor patient closely.
[2019-07-17] MEDS ORDERED: IPRATROPIUM BROM 0.5 MG/2.5ML INH SOL NEB SCH (18:00)
[2019-07-17] MEDS ORDERED: ALBUTEROL SULF 2.5 MG/0.5ML(0.5%) NEB SOLN NEB SCH (18:00)
[2019-07-17] MEDS: PROPOFOL 100 ML IV SCH (19:00)
[2019-07-17 19:32] LABS: Hematocrit 21.5 % (36.0-46.0); Hemoglobin 7.1 g/dL (12.2-16.2); Mean Corpuscular Hemoglobin 30.2 pg (28.0-32.0); Mean Corpuscular Volume 91.8 fL (80.0-100.0); Platelet Count (auto) 27 10^3/uL (140-450); Red Blood Cells 2.35 10^6/uL (4.0-5.20); White Blood Cell 10.5 10^3/uL (4.4-10.8)
[2019-07-17 19:36] LABS: Red Cell Distribution Width 29.1 % (11.8-14.3)
[2019-07-17 19:38] LABS: Band Neutrophils % (manual) 0; Basophils % (manual) 0 (0.0-2.0); Blast Cells 0; Metamyelocytes % 0; Promyelocytes % 0; Reactive Lymphocytes 0
[2019-07-17 19:39] LABS: Albumin 1.8 g/dL (3.4-5.0); Calcium 8.3 mg/dL (8.5-10.1); Magnesium 2.2 mg/dL (1.6-2.6); Potassium 4.2 mmol/L (3.5-5.1)
[2019-07-17 19:42] LABS: BUN/Creatinine Ratio 20.6; Bilirubin, Total 2.9 mg/dL (0.2-1.0); Total Protein 6.2 g/dL (6.4-8.2)
--- NOTE | 2019-07-17 20:00 | NUR ---
Opening Shift Note: Patient intubated/sedated. ET size 8.0/22 @ lip. Settings: AC rate 14, vT 450, FiO2 100%, and PEEP 6. Pupils are 3 mm in size/brisk/reactive; unable to follow commands or move extremities at this time; hypoactive gag/cough present. HR is NSR-ST 90s-100s; BPs 90s-110s; all pulses are palpable. ET secretions consist of thick creamy suptum. NGT to right nare inserted on 07/17/19 clamped. Menezes inserted on 07/17/19 for measurement of strict I/O: patient having oliguria (will monitor output). Skin: MASD to bilateral buttocks/sacrum: zguard opfiroamt applied. IV right tripe lumen IJ inserted on 06/16/19 running Versed @ 15, Levo @ 30. Patient unable to be educated on their plan of care related to sedation medications. Will continue to round q1H/prm.
[2019-07-17 20:34] LABS: Eosinophils % (manual) 1 (0-7); Lymphocytes % (manual) 39 (10.0-50.0); Monocytes % (manual) 3 (0-12); Myelocytes % 1
[2019-07-17] MEDS: EPINEPHrine HCL 250 ML IV SCH (21:24)
[2019-07-17] MEDS: VASOPRESSIN 50 UNITS in D5W 5% 247.5 ML IV SCH (21:30)
[2019-07-17] MEDS: SODIUM CHLORIDE 0.9% 1,000 ML IV SCH (21:30)
--- NOTE | 2019-07-17 21:30 | NUR ---
Low Blood pressure: Despite increasing Levophed per protocol, patient blood pressure still remain low (70s-90s) systolically. Also, patinet's urine output is very low Dr. Jean Mosquera (40 ml since 1600). New order received: start NS @ 100 ml/hr and use vasopressin as a second line pressor, then epinephrine.
--- NOTE | 2019-07-17 22:00 | NUR ---
Family update: Spoke with patient's daughter and mother on the current status of the patient. It was explained that the patient is still very critical in status but currently vital signs are stable. Notified many family members on current policies for visitors related to the spread of COVID-19. Lau virus is still being ruled out. Family agreed.
[2019-07-17] MEDS: NOREPINEPHRINE 8 MG/250ML KIT 250 ML IV SCH (22:30)
--- NOTE | 2019-07-17 23:00 | NUR ---
Vasopressin drip started per protocol.
[2019-07-18] VITALS (100 sets, daily range): BP systolic 73–124; BP diastolic 36–73
[2019-07-18 00:57] LABS: INR 2.21 (0.9-1.15)
[2019-07-18] MEDS: NOREPINEPHRINE 8 MG/250ML KIT 250 ML IV SCH ×3 (02:48→22:15)
[2019-07-18] MEDS: MIDAZOLAM DRIP 50 mg/50mL 50 ML IV SCH ×2 (02:49→07:00)
[2019-07-18] MEDS: EPINEPHrine HCL 250 ML IV SCH (04:00)
--- NOTE | 2019-07-18 04:00 | NUR ---
Epinephrine drip started per protocol for low blood pressures sustaining with MAPs under 65. Current BP is 89/54.
--- NOTE | 2019-07-18 04:25 | NUR ---
Wound picture taken of sacral/bilateral buttocks area. Small areas of broken skin noted. Optifoam changed.
--- NOTE | 2019-07-18 04:30 | NUR ---
Patient bathe/linen change Patient given complete CHG bath. Skin integrity assessed for any changes. Linens and gown changed. Patient repositioned for comfort.
[2019-07-18 06:03] LABS: Hematocrit 19.7 % (36.0-46.0)
[2019-07-18 06:06] LABS: Mean Corpuscular Hemoglobin 30.6 pg (28.0-32.0); Mean Corpuscular Hgb Conc. 33.4 g/dL (32.0-36.0); Mean Corpuscular Volume 91.8 fL (80.0-100.0); Platelet Count (auto) 31 10^3/uL (140-450); Red Blood Cells 2.15 10^6/uL (4.0-5.20); Red Cell Distribution Width 28.9 % (11.8-14.3); White Blood Cell 11.2 10^3/uL (4.4-10.8)
[2019-07-18 06:10] LABS: Hemoglobin 6.6 g/dL (12.2-16.2)
[2019-07-18 06:12] LABS: Band Neutrophils % (manual) 0; Blast Cells 0; Myelocytes % 0; Promyelocytes % 0; Reactive Lymphocytes 0
[2019-07-18 06:22] LABS: Basophils % (manual) 1 (0.0-2.0); Eosinophils % (manual) 3 (0-7); Lymphocytes % (manual) 73 (10.0-50.0); Metamyelocytes % 1; Monocytes % (manual) 3 (0-12)
[2019-07-18 06:25] LABS: Potassium 4.2 mmol/L (3.5-5.1)
--- NOTE | 2019-07-18 06:28 | NUR ---
Page sent to Dr. Mosquera: 1. Urine output despite previous order for NS @ 100 ml/hr received and started. 2. 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 3. Current Hbg with AM labs is 6.6. Communication order to first verify with Dr. Hernandez before transfusion. 4. Low grade temp at T Max 100.4 rectal. Possible order for Tylenol.
[2019-07-18] MEDS: ALBUTEROL SULF 2.5 MG/0.5ML(0.5%) NEB SOLN NEB SCH ×3 (06:30→22:38)
[2019-07-18] MEDS: IPRATROPIUM BROM 0.5 MG/2.5ML INH SOL NEB SCH ×3 (06:30→22:38)
[2019-07-18 06:33] LABS: Albumin 1.6 g/dL (3.4-5.0); BUN/Creatinine Ratio 19.6; Bilirubin, Total 2.7 mg/dL (0.2-1.0); Magnesium 2.1 mg/dL (1.6-2.6)
--- NOTE | 2019-07-18 07:00 | NUR ---
STAT page sent to Dr. Hernandez per Dr. Jean Mosquera in regards to patient's current status. Hbg 6.6 and Direct Leach positive. New order received for Tylenol 650 Q4H prn for fever greater than 100.4. No new order for renal perfusion.
--- NOTE | 2019-07-18 07:40 | NUR ---
REPORT RECEIVED FROM JANINE RNSONJA. PT INTUBATED AND SEDATED AND ON 3 PRESSORS. VISUALIZED PT THROUGH [facility] [employer]. CURRENTLY IN ISOLATION FOR + INFLUENZA A AND R/O COVID 19. VSS. NO DISTRESS NOTED.
[2019-07-18] MEDS ORDERED: ACETAMINOPHEN 325 MG TAB PO PRN (07:45)
--- NOTE | 2019-07-18 08:30 | NUR ---
PAGED DR FARFAN REGARDING H/H 6.6/19.7. DR SAVAGE WANTED US TO CHECK WITH DR FARFAN TO SEE IF HE WANTS TO TRANSFUSE BLOOD,.
--- NOTE | 2019-07-18 08:30 | NUR ---
PT TEACHING PT UNABLE TO BENEFIT FROM PT TEACHING AT THIS TIME DUE TO BEING SEDATED WHILE ON THE VENTILATOR. Addendum: 07/18/19 at 1558 by Marissa Davidson RN Amended: Links added.
--- NOTE | 2019-07-18 08:30 | NUR ---
PAGED DR FARFAN THROUGH HIS EXCHANGE. CHECKING WITH HIM AT DR Andria RIVAS'S REQUEST, TO SEE IF WANTS BLOOD TRANSFUSION WITH H/H OF 6.6/19.7 .
--- NOTE | 2019-07-18 08:30 | NUR ---
ASSESSMENT PT ISOLATION FOR + INFLUENZA A AND R/O COVID 19. PT SEDATED WHILE ON THE VENTILATOR . VENT SETTINGS OF 8 FR ETT/22 AT THE LIP, TV 450, AC 14, 35% AND PEEP OF 6. LUNGS CLEAR THROUGHOUT. SUCTIONED ORALLY AND VIA ETT FOR SMALL AMOUNT OF THIN CLEAR FLUID. TELE SR 93 WITH PVC. PALPABLE PULSES TO ALL EXTREMITIES. SCDS TO BLE. ABD SOFT WITH HYPOACTIVE BOWEL SOUNDS. OGT WITH + PLACEMENT AND NO RESIDUAL NOTED. LAST BM UNKNOWN. DUFF CATHETER DRAINING CLEAR YELLOW URINE. PT WITH RIJ TLC, PLACED 07/16 AND DRESSING CHANGED 07/17. SITE BENIGN AND PT CURRENTLY ON VASOPRESSIN, LEVOPHED, EPINEPHRINE, NS, AND VERSED. TURNED TO HER RIGHT SIDE. SKIN IS CLEAR OF BREAKDOWN AND WITH HYPERPIGMENTATION NOTED TO ABD PANNUS. RAILS UP X4 AND BED IN LOW POSITION FOR PT SAFETY. CONTINUE TO MONITOR.
[2019-07-18] MEDS: SODIUM CHLORIDE 0.9% 1,000 ML IV SCH ×2 (09:04→18:57)
[2019-07-18] MEDS ORDERED: D5W 5% IV SCH (10:00)
[2019-07-18] MEDS ORDERED: cefTRIAXone 1GM/50ML D5W 50 ML IV SCH (10:00)
[2019-07-18] MEDS ORDERED: AZITHROMYCIN IV SCH (10:00)
[2019-07-18] MEDS: OSELTAMIVIR 30 MG CAP PO SCH ×2 (10:59→22:15)
--- NOTE | 2019-07-18 11:00 | NUR ---
WOUND CARE NOTE: IN TO SEE PATIENT AT THIS TIME PER WOUND CARE CONSULT REQUEST. PATIENT WAS NOTED UPON ADMIT TO HAVE WOUNDS TO SACRUM/BUTTOCKS. WOUND PHOTOS TAKEN AT THAT TIME BY BEDSIDE NURSE FOR REFERENCE. PATIENT ADMITTED TO [facility] WITH DIAGNOSIS OF SEPSIS, MULTI SYSTEM ORGAN FAILURE. SHE IS CURRENTLY IN AIRBORN ISOLATION. PATIENT IS INTUBATED, SEDATED. CURRENT UMM SCORE IS 12. PATIENT IS NOTED TO HAVE MASD WITH SKIN EROSION THAT IS PARTIAL THICKNESS. ADVISED BEDSIDE NURSE TO APPLY ZGUARD, OPTIFOAM GENTLE SACRAL DRESSING. PATIENT WOULD ALSO BENEFIT FROM FREQUENT TURN SCHEDULE Q 2HR PRN CONDITION PERMITS, WITH PRESSURE REDISTRIBUTION USING PILLOWS/WEDGES, DIETARY CONSULT, SKIN/WOUND CARE PLAN, CONTINUED MONITORING BY WOUND CARE TEAM. Addendum: 07/18/19 at 1414 by Misty Naranjo RN Amended: Links added.
[2019-07-18] MEDS: VASOPRESSIN 50 UNITS in D5W 5% 247.5 ML IV SCH ×2 (11:01→23:08)
[2019-07-18] MEDS ORDERED: PANTOPRAZOLE 40 MG/10 ML VIAL INJ IV SCH (11:15)
[2019-07-18] MEDS ORDERED: PANTOPRAZOLE 40 MG/10 ML VIAL INJ IV ONE (11:30)
--- NOTE | 2019-07-18 13:00 | NUR ---
MD VISIT DR FARFAN HERE AND UPDATED HIM ON THE PT'S CURRENT CONDITION. ORDERS RECEIVED TO TRANSFUSE WITH [facility]LETS AND [facility] IN ADDITION TO EARLIER ORDER FOR ONE UNIT OF PRBC.
--- NOTE | 2019-07-18 13:15 | NUR ---
CALLED AND LEFT A MESSAGE FOR PT'S DAUGHTER, MAYLIN, TRYING TO OBTAIN CONSENT FOR BLOOD TRANSFUSION.
[2019-07-18] MEDS: PROPOFOL 100 ML IV SCH (15:13)
--- NOTE | 2019-07-18 16:50 | NUR ---
STARTED UNIT OF PRBC ORDERED. WILL MONITOR VS AND FOR POSSIBLE TRANSFUSION REACTION.
[2019-07-18] MEDS ORDERED: VANCOMYCIN 500 MG in D5W 5% 100 ML IV ONE (17:00)
--- NOTE | 2019-07-18 17:22 | NUR ---
BP OF 69/44 AND RECHECK OF 73/41. INCREASED EPINEPHRINE TO7 M Addendum: 07/18/19 at 1724 by Marissa Davidson RN TO 7 MCG/MIN
--- NOTE | 2019-07-18 17:30 | NUR ---
PORTABLE CXR DONE. PT ON HER RIGHRT SIDE. BP OF 84/36, DECREASED VERSED FROM 5 MG/HR TO 4 MG/HR
--- NOTE | 2019-07-18 19:10 | NUR ---
FINISHED TRANSFUSING ONE UNIT OF PRBC. STARTED VANCOMYCIN ONE TIME DOSE.
--- NOTE | 2019-07-18 19:40 | NUR ---
REPORT GIVEN TO NIGHT KEVIN GOMEZ TO CHECK IN ON PTEdelmira OSORIO TO Addendum: 07/18/19 at 2054 by Marissa Davidson RN CORRECTION REPORT GIVEN TO NIGHT YVONNE. JASON TO ANYA TO CHECK IN ON THE PT.
--- NOTE | 2019-07-18 19:45 | NUR ---
OPEN ASSUMED CARE OF FEMALE PT ORALLY INTUBATED. PT SEDATED ON VERSED GTT 4MG/HR. PT GRIMACES TO TACTILE STIMULATION. WITHDRAWS TO PAIN. OTHERWISE NON RESPONSIVE. SR ON TOOLING INSPECTOR. LEVOPHED GTT INFUSING AT 30 MCG/MIN, VASOPRESSIN GTT AT 0.07 UNITS/MIN, AND EPI GTT AT 7 MCG/MIN. NGT TO R. NARE CLAMPED. PLACEMENT VERIFIED. R. IJ TLC IN PLACE ALL PORTS PATENT. DRESSING CDI. DUFF TO GRAVITY DRAINING DARK LUCIANA CLOUDY URINE. VICENTA SCD'S IN PLACE. PT WITH MOISTURE ASSOCIATED DERMATITIS TO SACRUM WITH OPTIFOAM AND Z GAURD BARRIER OINTMENT IN PLACE. PT REPOSITIONED WITH PILLOWS USED TO OFFLOAD BONY PROMINENCES AND VICENTA HEELS. HOB ELEVATED 30 DEGREES. BED IN LOWEST LOCKED POSITION. SIDE RAILS UP X 2. PT IN FULL VIEW OF RN STATION. PT IN NEGATIVE PRESSURE ROOM FOR RULE OUT COVID. PROPER PPE IN USE. NO INDICATION OF PAIN OBSERVED. WILL CONTINUE TO MONITOR.
[2019-07-18] MEDS: MEROPENEM 500MG IVPB 50 ML IV SCH (21:00)
[2019-07-18 22:06] LABS: Hematocrit 24.5 % (36.0-46.0); Hemoglobin 8.1 g/dL (12.2-16.2); Mean Corpuscular Hemoglobin 30.1 pg (28.0-32.0); Mean Corpuscular Hgb Conc. 33.2 g/dL (32.0-36.0); Mean Corpuscular Volume 90.6 fL (80.0-100.0)
[2019-07-18 22:15] LABS: Basophils % (manual) 0 (0.0-2.0); Metamyelocytes % 0; Myelocytes % 0; Platelet Count (auto) 17 10^3/uL (140-450); Promyelocytes % 0; Reactive Lymphocytes 0
[2019-07-18 22:21] LABS: Albumin 1.6 g/dL (3.4-5.0); Bilirubin, Direct 2.3 mg/dL (0-0.2); Calcium 8.1 mg/dL (8.5-10.1); Potassium 4.2 mmol/L (3.5-5.1)
[2019-07-18 22:25] LABS: BUN/Creatinine Ratio 18.8; Bilirubin, Total 2.7 mg/dL (0.2-1.0); Total Protein 5.9 g/dL (6.4-8.2)
[2019-07-18 22:26] LABS: Band Neutrophils % (manual) 1; Blast Cells 2; Eosinophils % (manual) 1 (0-7); Lymphocytes % (manual) 61 (10.0-50.0); Monocytes % (manual) 5 (0-12)
[2019-07-18 22:30] LABS: White Blood Cell 14.6 10^3/uL (4.4-10.8)
[2019-07-18 22:47] LABS: INR 1.98 (0.9-1.15)
[2019-07-19] VITALS (105 sets, daily range): BP systolic 86–138; BP diastolic 51–88
--- NOTE | 2019-07-19 02:30 | NUR ---
Patient bathe/linen change Patient given complete bath. Skin integrity assessed for any changes. Linens changed. Patient repositioned for comfort. ZGAURD AND OPTIFOAM PLACED TO ROUGHENED PINK SKIN TO R. SIDE OF COCCYX/BUTTOCK AREA.
[2019-07-19] MEDS: MIDAZOLAM DRIP 50 mg/50mL 50 ML IV SCH ×2 (03:00→15:26)
[2019-07-19] MEDS: NOREPINEPHRINE 8 MG/250ML KIT 250 ML IV SCH ×4 (03:20→23:22)
[2019-07-19 04:34] LABS: Albumin 1.9 g/dL (3.4-5.0); Calcium 8.1 mg/dL (8.5-10.1); Magnesium 1.7 mg/dL (1.6-2.6)
[2019-07-19 04:47] LABS: BUN/Creatinine Ratio 19.2; Bilirubin, Direct 2.1 mg/dL (0-0.2); Bilirubin, Total 2.5 mg/dL (0.2-1.0); Total Protein 6.2 g/dL (6.4-8.2)
[2019-07-19] MEDS: SODIUM CHLORIDE 0.9% 1,000 ML IV SCH (05:30)
[2019-07-19 05:33] LABS: Protein, Urine 231.8 mg/dL (0.0-11.9)
[2019-07-19 06:03] LABS: Hematocrit 21.2 % (36.0-46.0); Hemoglobin 7.1 g/dL (12.2-16.2); Mean Corpuscular Hemoglobin 30.3 pg (28.0-32.0); Mean Corpuscular Hgb Conc. 33.7 g/dL (32.0-36.0); Mean Corpuscular Volume 89.9 fL (80.0-100.0); Platelet Count (auto) 61 10^3/uL (140-450); Red Blood Cells 2.35 10^6/uL (4.0-5.20)
[2019-07-19] MEDS: MEROPENEM 500MG IVPB 50 ML IV SCH ×2 (06:03→21:05)
[2019-07-19 06:05] LABS: Red Cell Distribution Width 26.2 % (11.8-14.3)
[2019-07-19 07:26] LABS: INR 1.52 (0.9-1.15); Partial Thromboplastin Time 47.3 sec (23.64-32.05)
[2019-07-19] MEDS: ALBUTEROL SULF 2.5 MG/0.5ML(0.5%) NEB SOLN NEB SCH ×3 (07:28→22:06)
[2019-07-19] MEDS: IPRATROPIUM BROM 0.5 MG/2.5ML INH SOL NEB SCH ×3 (07:28→22:04)
--- NOTE | 2019-07-19 07:30 | NUR ---
REPORT REPORT RECEIVED FROM JANINE RNAMBAR. PT REMIANS IN ISOLATION FOR R/O COVID 19, + FOR INFLUENZA A. PT ON THE VENTILATOR AND SEDATED . VSS. ABLE TO VISUALIZE PT THROUGH GLASS DOOR. CONTINUE TO MONITOR.
--- NOTE | 2019-07-19 07:46 | NUR ---
Respiratory note: RECEIVED PATIENT ON RENTAL V200 VENT ORALLY INTUBATED WITH AN 8.0 ETT SECURED VIA ITZ AT THE 22CM MARKING AT THE LIP, AND MECHANICALLY VENTILATED WITH THE CHARTED SETTINGS. SPO2 98%, LUNG SOUNDS DIM T/O, SMALL AMOUNT OF THICK CLEAR SECRETIONS WHEN SUCTIONED. SKIN IS COOL/DRY TO THE TOUCH AND IS INTACT NEAR ITZ SITE. NO NEW AM CXR TO ASSESS. NO EDEMA NOTED T/O. PATIENT IS SEDATED ON VERSED DRIP AND IS UNRESPONSIVE TO STIMULI. SHE IS RESTING COMFORTABLY AND TOLERATING VENT WELL, NO CHANGES MADE. [employer] RUN INLINE.
[2019-07-19 08:31] LABS: Basophils % (manual) 0 (0.0-2.0); Blast Cells 0; Metamyelocytes % 0; Myelocytes % 0; Promyelocytes % 0; Reactive Lymphocytes 0
[2019-07-19 08:32] LABS: Band Neutrophils % (manual) 3; Eosinophils % (manual) 1 (0-7); Lymphocytes % (manual) 58 (10.0-50.0); Monocytes % (manual) 10 (0-12)
[2019-07-19] MEDS: OSELTAMIVIR 30 MG CAP PO SCH (09:53)
[2019-07-19] MEDS: PANTOPRAZOLE 40 MG/10 ML VIAL INJ IV SCH (09:53)
[2019-07-19] MEDS: VASOPRESSIN 50 UNITS in D5W 5% 247.5 ML IV SCH (11:11)
--- NOTE | 2019-07-19 11:31 | NUR ---
PAGED DR FARFAN TO GIVE HIM THE LAB RESULTS HE REQUESTED.
--- NOTE | 2019-07-19 11:33 | NUR ---
FAMILY RECEIVED A PHONE CALL FROM PT'S SISTER,JOHN, AND AFTER SHE PROVIDED THE PASSWORD, I UPDATED HER ON THE PT'S CONDITION.
--- NOTE | 2019-07-19 12:12 | NUR ---
SPOKE WITH DR Andria SAVAGE , BY PHONE, AND UPDATED HIM ON THE PT'S CONDITION INCLUDING RESULT OF (-) COVID 19, , ASKED ABOUT AZITHROMYCIN DOSE AND MADE AWARE OF AM LABS AND THAT DR FARFAN ORDERED A UNIT OF PRBC. HE WANTS TO DC THE AZITHROMYCIN AND ORDERED AN OB CONSULT REGARDING SMALL AMOUNT OF VAGINAL BLEEDING.
--- NOTE | 2019-07-19 12:17 | NUR ---
ATTEMPTED TO CALL DR. KHANNA FOR OB CONSULT, AND HE DID NOT ANSWER. VOICEMAIL FULL. WILL CONTINUE TO CALL THROUGHOUT THE DAY.
--- NOTE | 2019-07-19 12:20 | NUR ---
OB CONSULT ATTEMPTED TO CALL DR MCGUIRE FOR THE OB CONSULT. HE DID NOT ANSWER HIS PHONE AND HIS VOICE MAIL IS FULL. PER TRANSMITTER OPERATOR, WE HAVE NO OTHER CONTACT NUMBER FOR HIM AND WILL HAVE TO KEEP ON TRYING TO GET A HOLD OF HIM.
[2019-07-19] MEDS: BUMETANIDE INJECTION 12.5 MG in GIVE UN-DILUTED 0 ML IV SCH (12:35)
[2019-07-19] MEDS: SODIUM BICARBONATE 50ML VIAL 75 ML in SOD CHL 0.45% 1,000 ML IV SCH (12:36)
--- NOTE | 2019-07-19 13:09 | NUR ---
NUTRITION CONSULT/ASSESSMENT NOTES If EN support to be initiated, consider Jevity 1.2 Josesito @60ml/hr goal rate. Please refer to link notes of nutrition screen form filed under the intervention section of the plan of care for further details. Est. Energy Needs: 1262-3399 kcal (20-25 kcal/kg BW). Est. Protein Needs: 75-97 gms/day (1.0-1.3 gms/kg BW). Will continue to monitor pertinent labs and reassess nutrient need prn Addendum: 07/19/19 at [address] Amended: Links added.
[2019-07-19] MEDS ORDERED: methylPREDNISolone SOD SUCC 40 MG/ML VL IV ONE (14:45)
[2019-07-19] MEDS: PROPOFOL 100 ML IV SCH (15:13)
--- NOTE | 2019-07-19 16:11 | NUR ---
FAMILY RECEIVED A PHONE CALL FROM PT'S MOTHER. AFTER VERIFYING THE PASSWORD, I UPDATED HER ON THE PT'S CURRENT CONDITION AND ANSWERED HER QUESTIONS.
--- NOTE | 2019-07-19 17:03 | NUR ---
PC TRANSFUSION PT TO BE TRANSFUSED WITH ONE UNIT PF PRBC PER DR FARFAN. UNIT OBTAINED FROM BLOOD BANK AND VERIFIED WITH JASON HURLEY. STARTED AT RATE OF 100 ML/HR. CONTINUE TO MONITOR PT FOR ANY POSSIBLE REACTION.
--- NOTE | 2019-07-19 17:15 | NUR ---
PC TRANSFUSION TOLERATED FIRST 15 MINUTES OF BLOOD TRANSFUSION AT RATE OF 100 ML/HR. VSS WITH NO SIGNS OF ADVERSE REACTION. INCREASED RTE TO 125 ML/HR. CONTINUE TO MONITOR.
--- NOTE | 2019-07-19 17:24 | NUR ---
PELVIC ULTRASOUND COMPLETED. AWAITING RESULT.
[2019-07-19] MEDS ORDERED: VANCOMYCIN 500 MG in D5W 5% 100 ML IV ONE (18:00)
--- NOTE | 2019-07-19 19:35 | NUR ---
NOTIFIED DR MCGUIRE OF PELVIC ULTRASOUND RESULT BY PHONE. TEST SHOWS SMALL FREE FLUID IN THE PELVIS. MD AWARE AND NO NEW ORDERS RECEIVED.
--- NOTE | 2019-07-19 19:40 | NUR ---
REPORT REPORT GIVEN TO CARLOS EDUARDO MEHTA RN.
--- NOTE | 2019-07-19 19:45 | NUR ---
Opening Shift Note Assumed care of patient, intubated, sedated. Breathing on ETT with AC mode ventilator, even and synchronized, No S/S of distress/SOB or pain. TLC at right IJ. NGT in place, clamped, will start TF as MD order. Menezes's catheter care hung to gravity with straw urine mixed with small amount of hematuria and sediments. SCD to both legs. Bed in low position, all alarms are audible, fall and safety precaution in place. No visitor allowed at this time, will continue to monitor for changes Q1hr and PRN.
[2019-07-19] MEDS ORDERED: Jevity 1.2 Cal/Fiber 1 Liter GT SCH (20:00)
--- NOTE | 2019-07-19 20:00 | NUR ---
Medication given Meropenem IV given at 20.00pm. Unable to scan the medicine with computer inside the room due to computer temporary down.
[2019-07-19] MEDS: EPINEPHrine HCL 250 ML IV SCH (21:24)
[2019-07-19 21:27] LABS: Hemoglobin 9.5 g/dL (12.2-16.2); Platelet Count (auto) 48 10^3/uL (140-450)
[2019-07-19 21:28] LABS: Hematocrit 27.9 % (36.0-46.0); Mean Corpuscular Hemoglobin 30.6 pg (28.0-32.0); Mean Corpuscular Volume 89.8 fL (80.0-100.0); White Blood Cell 8.7 10^3/uL (4.4-10.8)
[2019-07-19 21:40] LABS: Albumin 1.8 g/dL (3.4-5.0); Magnesium 1.8 mg/dL (1.6-2.6); Potassium 4.4 mmol/L (3.5-5.1)
[2019-07-19 21:41] LABS: Red Cell Distribution Width 23.3 % (11.8-14.3)
[2019-07-19 21:43] LABS: Basophils % (manual) 0 (0.0-2.0); Blast Cells 0; Metamyelocytes % 0; Promyelocytes % 0
[2019-07-19] MEDS: ALBUMIN 25% 100 ML IV SCH (21:43)
[2019-07-19] MEDS: methylPREDNISolone SOD SUCC 40 MG/ML VL IV SCH (21:43)
[2019-07-19 21:46] LABS: BUN/Creatinine Ratio 19.2; Bilirubin, Direct 2.7 mg/dL (0-0.2); Bilirubin, Total 3.3 mg/dL (0.2-1.0); Total Protein 6.5 g/dL (6.4-8.2)
[2019-07-19 21:59] LABS: Band Neutrophils % (manual) 1; Eosinophils % (manual) 2 (0-7); Lymphocytes % (manual) 47 (10.0-50.0); Monocytes % (manual) 8 (0-12); Myelocytes % 1
[2019-07-19 22:00] LABS: Reactive Lymphocytes 1
[2019-07-19 22:07] LABS: INR 1.67 (0.9-1.15); Partial Thromboplastin Time 46.4 sec (23.64-32.05)
--- NOTE | 2019-07-19 22:30 | NUR ---
Tube feeding Jevity started at 10ml/hr, see intervention for details.
[2019-07-20] VITALS (105 sets, daily range): BP systolic 94–133; BP diastolic 61–88
[2019-07-20] MEDS: VASOPRESSIN 50 UNITS in D5W 5% 247.5 ML IV SCH (01:43)
[2019-07-20] MEDS: BUMETANIDE INJECTION 12.5 MG in GIVE UN-DILUTED 0 ML IV SCH (03:00)
[2019-07-20] MEDS: MIDAZOLAM DRIP 50 mg/50mL 50 ML IV SCH ×2 (03:00→14:36)
[2019-07-20] MEDS: SODIUM BICARBONATE 50ML VIAL 75 ML in SOD CHL 0.45% 1,000 ML IV SCH ×2 (03:00→13:54)
[2019-07-20] MEDS: NOREPINEPHRINE 8 MG/250ML KIT 250 ML IV SCH ×2 (04:13→09:30)
[2019-07-20 04:41] LABS: Basophils # (auto) 0.1 10 ^3/uL (0-0.2); Eosinophils # (auto) 0.1 10 ^3/uL (0-0.8); Hemoglobin 8.9 g/dL (12.2-16.2); Monocytes # (auto) 0.4 10 ^3/uL (0-1.3)
[2019-07-20 04:43] LABS: Basophils % (auto) 0.7 % (0.0-2.0); Eosinophils % (auto) 1.2 % (0.0-7.0); Hematocrit 25.5 % (36.0-46.0); Lymphocytes # (auto) 3.9 10 ^3/uL (0.4-5.4); Lymphocytes % (auto) 45.6 % (10.0-50.0); Mean Corpuscular Hemoglobin 31.1 pg (28.0-32.0); Mean Corpuscular Hgb Conc. 34.8 g/dL (32.0-36.0); Mean Corpuscular Volume 89.5 fL (80.0-100.0); Monocytes % (auto) 4.2 % (0.0-12.0); Neutrophils # (auto) 4.1 10 ^3/uL (1.6-8.6); Neutrophils % (auto) 48.3 % (37.0-80.0); Platelet Count (auto) 37 10^3/uL (140-450); Red Blood Cells 2.85 10^6/uL (4.0-5.20); White Blood Cell 8.5 10^3/uL (4.4-10.8)
[2019-07-20 04:47] LABS: Red Cell Distribution Width 23.3 % (11.8-14.3)
[2019-07-20 04:57] LABS: Albumin 2.3 g/dL (3.4-5.0); Calcium 7.7 mg/dL (8.5-10.1); Magnesium 1.7 mg/dL (1.6-2.6); Potassium 4.2 mmol/L (3.5-5.1)
[2019-07-20 05:09] LABS: Bilirubin, Direct 3.1 mg/dL (0-0.2); Bilirubin, Total 3.8 mg/dL (0.2-1.0); Total Protein 6.5 g/dL (6.4-8.2)
--- NOTE | 2019-07-20 05:20 | NUR ---
Patient bathe/linen change Patient given complete bath with CHG wipes. All EKG electrodes changed. Skin integrity assessed for any changes, no new changes. Optifoam at Sacrum intact. Z-guard applied to cade area. Menezes's catheter care done. Menezes's catheter live hanger applied to right thigh. NGT tae changed. Noted scant amount of clear and red discharge at the vagina while cleaning. Linens changed. Patient repositioned to prevent pressure ulcer. Patient opened eyes when doing mouth care. Mouth care done. Noted small amount of blood mixed with saliva.
[2019-07-20 05:38] LABS: INR 1.96 (0.9-1.15); Partial Thromboplastin Time 52.4 sec (23.64-32.05)
--- NOTE | 2019-07-20 06:00 | NUR ---
Summary BP better. Able to taper of Vasopressin at 6am, will try taper Levophed down. No fever. Scant amount of vagina clear/ red discharge. TF started, residual 25ml, increased TF to 45ml/ hr at 6am. Small amount o blood mixed with saliva noted. Sedated with Versed at 5mg/hr, Pt opened eyes with stimulation, no follow commands, no arms movement. Continue care and will endorsed to day nurse.
[2019-07-20] MEDS: methylPREDNISolone SOD SUCC 40 MG/ML VL IV SCH ×3 (06:27→22:00)
[2019-07-20] MEDS: MEROPENEM 500MG IVPB 50 ML IV SCH ×2 (06:27→18:29)
[2019-07-20] MEDS: ALBUTEROL SULF 2.5 MG/0.5ML(0.5%) NEB SOLN NEB SCH ×3 (07:34→22:20)
[2019-07-20] MEDS: IPRATROPIUM BROM 0.5 MG/2.5ML INH SOL NEB SCH ×3 (07:35→22:20)
--- NOTE | 2019-07-20 07:40 | NUR ---
OPENING NOTE SHIFT REPORT RECEIVED AND ASSUMED CARE OF PT FROM CARLOS EDUARDO GOMEZ
[2019-07-20] MEDS: ALBUMIN 25% 100 ML IV SCH ×2 (09:30→22:00)
[2019-07-20] MEDS: PANTOPRAZOLE 40 MG/10 ML VIAL INJ IV SCH (09:30)
[2019-07-20] MEDS: OSELTAMIVIR 30 MG CAP PO SCH (09:33)
--- NOTE | 2019-07-20 10:00 | NUR ---
DR. KHANNA AT BEDSIDE TO INSPECT FOR VAGINAL BLEEDING. STATES NOT SIGNIFICANT AND VERY MINIMAL AND CANNOT CALL IT VAGINAL BLEEDING. NO ORDERS AND STATES NO NEED FOR FURTHER FOLLOW UP WITH HIM.
--- NOTE | 2019-07-20 11:00 | NUR ---
DR. FLAHERTY AT BEDSIDE NO NEW ORDERS AT THIS TIME
--- NOTE | 2019-07-20 11:10 | NUR ---
DR. GEE AT BEDSIDE ORDERS RECEIVED
[2019-07-20] MEDS ORDERED: DEXTROSE (50%) 50ML SYRG IV PRN (12:00)
[2019-07-20] MEDS: ACCU-CHEK COMFORT CURVE STRIP VI SCH ×2 (13:15→18:29)
[2019-07-20] MEDS: InsuLIN REG 1unit/0.01ml Soln (100units/ml) SC SCH ×2 (13:16→18:50)
--- NOTE | 2019-07-20 13:20 | NUR ---
RETURNED ADALI'S PHONE CALL AND UPDATED ON PT STATUS. DAUGHTER STATES NO FURTHER QUESTIONS OR CONCERNS AT THIS TIME. ALSO STATES NO DECISION MADE AT THIS TIME.
--- NOTE | 2019-07-20 14:15 | NUR ---
DR. FARRAR AT BEDSIDE ORDERS RECEIVED
--- NOTE | 2019-07-20 14:20 | NUR ---
DR. SAVAGE AT BEDSIDE NO NEW ORDERS AT THIS TIME
[2019-07-20] MEDS: PROPOFOL 100 ML IV SCH (15:13)
--- NOTE | 2019-07-20 17:00 | NUR ---
CHANGED CENTRAL LINE DRESSING DUE TO SOILING. PT TOLERATED WELL.
[2019-07-20] MEDS: fentaNYL Drip 2500mCg/250mlNS 250 ML IV SCH (18:53)
--- NOTE | 2019-07-20 19:20 | NUR ---
CLOSING NOTE SHIFT REPORT GIVEN AND CARE ENDORSED TO TONYA GOMEZ
--- NOTE | 2019-07-20 21:00 | NUR ---
SEDATION VACATION NOT PERFORMED AT THIS TIME IT IS NOT APPROPRIATE; WILL CONT. TO MONITOR.
[2019-07-20 21:11] LABS: Hematocrit 24.7 % (36.0-46.0); Hemoglobin 8.6 g/dL (12.2-16.2); Mean Corpuscular Hemoglobin 31.2 pg (28.0-32.0); Platelet Count (auto) 30 10^3/uL (140-450); Red Blood Cells 2.78 10^6/uL (4.0-5.20); White Blood Cell 6.6 10^3/uL (4.4-10.8)
[2019-07-20 21:13] LABS: Red Cell Distribution Width 22.9 % (11.8-14.3)
[2019-07-20 21:14] LABS: Basophils % (manual) 0 (0.0-2.0); Blast Cells 0; Eosinophils % (manual) 0 (0-7); Promyelocytes % 0; Reactive Lymphocytes 0
[2019-07-20 21:24] LABS: INR 2.15 (0.9-1.15); Partial Thromboplastin Time 53.8 sec (23.64-32.05)
[2019-07-20] MEDS: EPINEPHrine HCL 250 ML IV SCH (21:24)
[2019-07-20 21:27] LABS: Band Neutrophils % (manual) 2; Lymphocytes % (manual) 54 (10.0-50.0); Metamyelocytes % 3; Monocytes % (manual) 2 (0-12); Myelocytes % 1
[2019-07-20 21:28] LABS: Albumin 2.4 g/dL (3.4-5.0); Calcium 6.9 mg/dL (8.5-10.1); Magnesium 1.7 mg/dL (1.6-2.6); Potassium 3.3 mmol/L (3.5-5.1)
[2019-07-20 21:32] LABS: BUN/Creatinine Ratio 20.1; Bilirubin, Direct 2.6 mg/dL (0-0.2); Bilirubin, Total 3.3 mg/dL (0.2-1.0); Total Protein 6.3 g/dL (6.4-8.2)
[2019-07-21] VITALS (105 sets, daily range): BP systolic 89–123; BP diastolic 56–82
--- NOTE | 2019-07-21 | NUR ---
VERSED GTT OFF.
[2019-07-21] MEDS: ACCU-CHEK COMFORT CURVE STRIP VI SCH ×4 (01:17→18:35)
[2019-07-21] MEDS: InsuLIN REG 1unit/0.01ml Soln (100units/ml) SC SCH ×4 (01:25→19:32)
[2019-07-21] MEDS: SODIUM BICARBONATE 50ML VIAL 75 ML in SOD CHL 0.45% 1,000 ML IV SCH ×2 (03:21→17:32)
[2019-07-21] MEDS: methylPREDNISolone SOD SUCC 40 MG/ML VL IV SCH ×3 (06:00→21:14)
[2019-07-21] MEDS: MEROPENEM 500MG IVPB 50 ML IV SCH ×2 (06:00→18:35)
[2019-07-21 06:31] LABS: Hematocrit 24.3 % (36.0-46.0)
[2019-07-21 06:33] LABS: Hemoglobin 8.4 g/dL (12.2-16.2); Mean Corpuscular Hemoglobin 30.6 pg (28.0-32.0); Mean Corpuscular Hgb Conc. 34.6 g/dL (32.0-36.0); Mean Corpuscular Volume 88.3 fL (80.0-100.0); Platelet Count (auto) 27 10^3/uL (140-450); Red Blood Cells 2.75 10^6/uL (4.0-5.20); White Blood Cell 6.5 10^3/uL (4.4-10.8)
[2019-07-21] MEDS: ALBUTEROL SULF 2.5 MG/0.5ML(0.5%) NEB SOLN NEB SCH ×2 (06:40→23:05)
[2019-07-21] MEDS: IPRATROPIUM BROM 0.5 MG/2.5ML INH SOL NEB SCH ×2 (06:40→23:05)
[2019-07-21 06:45] LABS: Albumin 2.8 g/dL (3.4-5.0); Calcium 6.8 mg/dL (8.5-10.1); Magnesium 1.8 mg/dL (1.6-2.6)
[2019-07-21 06:49] LABS: INR 1.95 (0.9-1.15); Partial Thromboplastin Time 51.5 sec (23.64-32.05)
[2019-07-21 06:50] LABS: Red Cell Distribution Width 22.2 % (11.8-14.3)
[2019-07-21 06:51] LABS: BUN/Creatinine Ratio 20.7; Basophils % (manual) 0 (0.0-2.0); Bilirubin, Direct 2.2 mg/dL (0-0.2); Bilirubin, Total 2.9 mg/dL (0.2-1.0); Blast Cells 0; Eosinophils % (manual) 0 (0-7); Promyelocytes % 0; Reactive Lymphocytes 0; Total Protein 6.6 g/dL (6.4-8.2)
--- NOTE | 2019-07-21 07:30 | NUR ---
OPENING NOTE SHIFT REPORT GET BACK AND ASSUMED CARE OF PT FROM TONYA GOMEZ
[2019-07-21 07:44] LABS: Band Neutrophils % (manual) 2; Lymphocytes % (manual) 50 (10.0-50.0); Metamyelocytes % 1; Monocytes % (manual) 3 (0-12); Myelocytes % 1
[2019-07-21] MEDS: BUMETANIDE INJECTION 12.5 MG in GIVE UN-DILUTED 0 ML IV SCH (08:53)
[2019-07-21] MEDS: NOREPINEPHRINE 8 MG/250ML KIT 250 ML IV SCH (08:56)
--- NOTE | 2019-07-21 09:48 | NUR ---
RECEIVED ORDERS FROM DR. GEE
[2019-07-21] MEDS ORDERED: POTASSIUM EFFERVESENT TAB 25 MEQ GT ONE (10:00)
[2019-07-21] MEDS: PANTOPRAZOLE 40 MG/10 ML VIAL INJ IV SCH (10:29)
[2019-07-21] MEDS: POTASSIUM CHL 20MEQ/100ML 100 ML IV SCH ×2 (10:29→12:23)
[2019-07-21] MEDS: OSELTAMIVIR 30 MG CAP PO SCH (10:29)
[2019-07-21] MEDS: ALBUMIN 25% 100 ML IV SCH (10:29)
--- NOTE | 2019-07-21 11:20 | NUR ---
DR. LUTHER AT BEDSIDE ORDERS RECEIVED
[2019-07-21 11:36] LABS: Hepatitis A Ab IgM Negative; Hepatitis B Core IgM Negative; Hepatitis B Surface Antigen Negative (Negative); Hepatitis C Antibody Negative (Negative)
--- NOTE | 2019-07-21 11:45 | NUR ---
DR. FLAHERTY AT BEDSIDE ORDERS RECEIVED
[2019-07-21] MEDS ORDERED: VANCOMYCIN 500 MG in D5W 5% 100 ML IV ONE (12:00)
[2019-07-21 12:27] LABS: INR 1.79 (0.9-1.15)
[2019-07-21] MEDS ORDERED: METOCLOPRAMIDE HCL 10 MG TAB PO SCH (14:00)
--- NOTE | 2019-07-21 14:30 | NUR ---
DR. FARRAR AT BEDSIDE ORDERS RECEIVED
[2019-07-21] MEDS: METOCLOPRAMIDE HCL 5MG/ml INJ 2ml VIAL IV SCH ×2 (14:33→21:14)
[2019-07-21] MEDS: PROPOFOL 100 ML IV SCH (15:13)
--- NOTE | 2019-07-21 15:40 | NUR ---
assessment Patient is a 59 year old female who is in ICU on a vent. Per patients daughter Hannah prior to admission patient lived home with her and functioned with assistance. Patient has a wheelchair, hospital bed, and girma lift for home use. Patients PCP is Dr Lemus. Hannah informed me patient was having SOb and she call hospice then 911. Patient was on hospice with [facility]. Per Hannah patient will resume with [facility] on discharge. Hannah verbalized understanding and agreed to discharge plan home on hospice. Addendum: 07/21/19 at 1542 by Marie TAFOYA Amended: Links added.
[2019-07-21] MEDS: MIDAZOLAM DRIP 50 mg/50mL 50 ML IV SCH (16:03)
--- NOTE | 2019-07-21 19:20 | NUR ---
CLOSING NOTE SHIFT REPORT GIVEN AND CARE ENDORSED TO PAULA GOMEZ
--- NOTE | 2019-07-21 19:30 | NUR ---
REPORT RECEIVED, ASSUMED CARE.
[2019-07-21] MEDS: fentaNYL Drip 2500mCg/250mlNS 250 ML IV SCH (21:16)
[2019-07-21] MEDS: EPINEPHrine HCL 250 ML IV SCH (21:17)
[2019-07-21] MEDS: VASOPRESSIN 50 UNITS in D5W 5% 247.5 ML IV SCH (21:17)
--- NOTE | 2019-07-21 21:19 | NUR ---
TEMP LOW WARM BLANKETS PLACED ON PT.
--- NOTE | 2019-07-21 21:35 | NUR ---
BLOOD BANK CALLED [facility]ATELETS WILL BE AVAILABLE @ 0700 AM.
[2019-07-22] VITALS (105 sets, daily range): BP systolic 77–138; BP diastolic 47–85
[2019-07-22] MEDS: ACCU-CHEK COMFORT CURVE STRIP VI SCH ×5 (00:30→23:19)
[2019-07-22] MEDS: InsuLIN REG 1unit/0.01ml Soln (100units/ml) SC SCH ×5 (00:30→23:22)
--- NOTE | 2019-07-22 00:31 | NUR ---
PT TEMP STILL LOW, PLACED BEAR GGER WARMING BLNKT ON PT.
[2019-07-22 04:16] LABS: Albumin 2.9 g/dL (3.4-5.0); BUN/Creatinine Ratio 22.3; Calcium 6.4 mg/dL (8.5-10.1); Magnesium 1.4 mg/dL (1.6-2.6)
[2019-07-22 04:19] LABS: Bilirubin, Total 2.9 mg/dL (0.2-1.0); Phosphorus 3.2 mg/dL (2.5-4.90); Total Protein 6.2 g/dL (6.4-8.2)
[2019-07-22 04:35] LABS: Hematocrit 24.1 % (36.0-46.0); Hemoglobin 8.3 g/dL (12.2-16.2); Mean Corpuscular Hemoglobin 30.2 pg (28.0-32.0); Mean Corpuscular Hgb Conc. 34.6 g/dL (32.0-36.0); Mean Corpuscular Volume 87.3 fL (80.0-100.0); Platelet Count (auto) 23 10^3/uL (140-450); Red Blood Cells 2.76 10^6/uL (4.0-5.20); Red Cell Distribution Width 22.5 % (11.8-14.3)
[2019-07-22 04:36] LABS: Band Neutrophils % (manual) 0; Basophils % (manual) 0 (0.0-2.0); Blast Cells 0; Eosinophils % (manual) 0 (0-7); Metamyelocytes % 0; Myelocytes % 0; Promyelocytes % 0; Reactive Lymphocytes 0
[2019-07-22 04:37] LABS: Potassium 2.5 mmol/L (3.5-5.1)
--- NOTE | 2019-07-22 05:09 | NUR ---
K+ CRITICAL LOW 2.5 NOTIFIED MD ESPOSITO BUTADIENE COMPRESSOR OPERATOR FOR XI, NEW ORDERS OBTAINED. WILL CONT TO MONITOR AND GIVE IN REPORT.
[2019-07-22] MEDS: POTASSIUM CHL 20MEQ/100ML 100 ML IV SCH ×5 (05:54→14:38)
[2019-07-22] MEDS: METOCLOPRAMIDE HCL 5MG/ml INJ 2ml VIAL IV SCH ×3 (05:54→21:32)
[2019-07-22] MEDS: methylPREDNISolone SOD SUCC 40 MG/ML VL IV SCH ×3 (05:55→23:19)
[2019-07-22] MEDS: NOREPINEPHRINE 8 MG/250ML KIT 250 ML IV SCH ×2 (05:56→12:23)
[2019-07-22] MEDS: IPRATROPIUM BROM 0.5 MG/2.5ML INH SOL NEB SCH ×3 (06:01→22:48)
[2019-07-22] MEDS: ALBUTEROL SULF 2.5 MG/0.5ML(0.5%) NEB SOLN NEB SCH ×3 (06:01→22:48)
[2019-07-22] MEDS: MEROPENEM 500MG IVPB 50 ML IV SCH ×2 (06:12→17:52)
--- NOTE | 2019-07-22 06:16 | NUR ---
Respiratory note: RECEIVED PATIENT ON RENTAL V200 VENT ORALLY INTUBATED WITH AN 8.0 ETT SECURED VIA ITZ AT THE 22CM MARKING AT THE LIP, AND MECHANICALLY VENTILATED WITH THE CHARTED SETTINGS. SPO2 98%, LUNG SOUNDS DIM T/O, SMALL AMOUNT OF THICK CLOUDY SECRETIONS WHEN SUCTIONED. SKIN IS COOL/DRY TO THE TOUCH, AND IS INTACT NEAR ITZ SITE. THERE IS A NGT IN THE RIGHT NARE AND SECURED TO THE NOSE, AND A TRIPLE LUMEN CENTRAL LINE IS PLACED IN THE RIGHT IJ. PITTING EDEMA NOTED IN BILATERAL UPPER AND LOWER EXTREMITIES. NO NEW AM CXR TO ASSESS. PATIENT IS UNRESPONSIVE TO ALL STIMULI AND IS OFF ALL SEDATION. SHE IS RESTING COMFORTABLY AND TOLERATING VENT WELL, NO CHANGES MADE. VENT PLUGGED INTO RED OUTLET AND ALL ALARMS ARE SET AND AUDIBLE. WILL CONTINUE TO ASSESS PATIENT WELL VENTILATOR FUNCTION. MED-NEB RUN INLINE, ABG DRAWN.
[2019-07-22 06:35] LABS: Lymphocytes % (manual) 47 (10.0-50.0); Monocytes % (manual) 4 (0-12)
[2019-07-22 06:43] LABS: White Blood Cell 5.3 10^3/uL (4.4-10.8)
--- NOTE | 2019-07-22 07:15 | NUR ---
CALLED LEFT MESSAGE FOR MD ARENAS REGARDING ABG RESULTS.
--- NOTE | 2019-07-22 07:21 | NUR ---
CALLED RX REGARDING NEEDING A IVF WITH BICARBONATE.
--- NOTE | 2019-07-22 07:39 | NUR ---
SHUT OFF IVF WITH SODIUM BICARB IN IT AT THIS TIME DUE TO ABG RESULTS.
[2019-07-22] MEDS: SODIUM BICARBONATE 50ML VIAL 75 ML in SOD CHL 0.45% 1,000 ML IV SCH (07:50)
--- NOTE | 2019-07-22 08:30 | NUR ---
FENTANYL GTT TURNED ON AT THIS TIME RATE OF 25 MCG/HR DUE TO RR IN LOW 20'S AND ABG RESULTS, WITH PENDING PLEUREX DRAIN PLACEMENT TODAY.
[2019-07-22] MEDS: BUMETANIDE INJECTION 12.5 MG in GIVE UN-DILUTED 0 ML IV SCH (08:39)
[2019-07-22] MEDS: PANTOPRAZOLE 40 MG/10 ML VIAL INJ IV SCH (10:12)
[2019-07-22] MEDS: OSELTAMIVIR 30 MG CAP PO SCH (10:12)
[2019-07-22] MEDS ORDERED: ADENOSINE 6 MG/2 ML INJ IV ONE ×2 (10:44→11:00)
[2019-07-22] MEDS ORDERED: AMIODARONE HCL (50 MG/ ML) 3 ML VIAL IV ONE (10:56)
[2019-07-22] MEDS ORDERED: DIGOXIN (250MCG/ML) 2 ML AMPULE ONE (10:56)
[2019-07-22] MEDS ORDERED: DIGOXIN (250MCG/ML) 2 ML AMPULE IV ONE (11:00)
[2019-07-22] MEDS ORDERED: AMIODARONE HCL 150 MG in D5W 5% 100 ML IV ONE (11:00)
--- NOTE | 2019-07-22 11:00 | NUR ---
SVT-PATIENT WENT INTO SVR 160'S 12 LEAD EKG OBTAINED, PATIENT HOOKED TO CRASH CART WITH PACER PADS IN PLACE. DR FLAHERTY AT [facility] AND AWARE. PAGED DR LUTHER WITH ORDERS TO CONSULT CARDIO. DR VALENTINE CAME TO BEDSIDE, NEW ORDER FOR ADENOSINE 6 MG WHICH RN GAVE AND PATIENT CONVERTED TO SR 80'S-90'S. NEW ORDERS RECEIVED FOR DIGOXIN 0.5 MG IVP ONCE AND AMIODARONE 150 MG BOLUS ONCE. BP REMAINS STABLE. CONT TO MONITOR.
[2019-07-22] MEDS ORDERED: POTASSIUM EFFERVESENT TAB 25 MEQ GT ONE (12:30)
--- NOTE | 2019-07-22 12:35 | NUR ---
DR GEE AT BEDSIDE, AWARE RN SHUT OFF BICARB GTT THIS AM, AWARE POTASSIUM WAS GIVEN AND RN TO REDRAW ANOTHER POTASSIUM LEVEL IF POTASSIUM LESS THAN 3.5 NEW ORDER TO GIVE 40 MG IV RIDER ONCE. DR MCLAUGHLIN MAG LEVEL 1.4 NEW ORDER FOR [address] MCLAUGHLIN URINE OUTPUT. DR GAVE ORDER TO GIVE 50 MEQ OF POTASSIUM DOWN OGT PRIOR TO GETTING RESULT FROM NEW POTASSIUM LAB DRAW
[2019-07-22] MEDS: MAGNESIUM SULFATE 1GM/100ML 100 ML IV SCH ×2 (12:55→14:05)
[2019-07-22] MEDS ORDERED: TPN PER PHARMACY 0 ML IV SCH (13:45)
--- NOTE | 2019-07-22 13:45 | NUR ---
NUTRITION FOLLOWUP NOTES Pt wt is 83.3 kg Pt is sedated, intubated, with EN nutrition support suspended d/t pt intolerance. Recommend TPN nutrition support be initiated. Will continue to monitor and followup prn. Est. Energy Needs: 8867-4956 kcal (20-25 kcal/kg BW). Est. Protein Needs: 75-97 gms/day (1.0-1.3 gms/kg BW). Will continue to monitor pertinent labs and reassess nutrient need prn LABS: POT 2.5 L, NA 133 L, CK 92 L, BUN 58 H, CR 2.6 H, GFR 20 L, GLUC 186 H, CA 6.4 L GI: No BM since 07/18/19 per sugarcane research technician BS: 10 high risk, pt with MASD. Please refer to wound assessment report for full details. PES: Problem 1) Altered nutrition related lab values r/t current medical condition 2) Inadequate nutrient intake r/t current energy and protein needs Comments Will continue to monitor NPO status, skin status, pertinent labs and weight trend. F/u in 2 to 3 days. Recommendations: 1) If still NPO in 48 hours, consider initiating EN support with Jevity 1.2 Josesito @60 ml/hr goal rate, as tolerated. 2) Advance gradually to oral 2g Na diet when medically appropriate. 3) Continue current plan of care.
--- NOTE | 2019-07-22 13:45 | NUR ---
DR LUTHER AT BEDSIDE DR AWARE OF SVT AND RN REPLACING ELECTROLYTES. ATTEMPTED TO CALL DTR NO ANSWER. Addendum: 07/22/19 at 1405 by Maximus Munson RN OBTAINED TPN ORDER FROM
[2019-07-22] MEDS ORDERED: MAGNESIUM SULFATE 1GM/100ML 100 ML IV ONE (14:45)
[2019-07-22] MEDS: PROPOFOL 100 ML IV SCH (15:13)
[2019-07-22] MEDS: MIDAZOLAM DRIP 50 mg/50mL 50 ML IV SCH (16:03)
--- NOTE | 2019-07-22 16:05 | NUR ---
HEPARIN GTT SHUT OFF AT THIS TIME DUE TO INCREASED AMOUNT OF BONIFACIO RED BLOOD FROM ETT AND ORAL CAVITY UPON SUCTIONING AND CLEMONS COLORED URINE. Addendum: 07/22/19 at 1826 by Maximus Munson RN WRONG PATIENT
[2019-07-22] MEDS ORDERED: CALCIUM GLUC 4.65meq/50ml D5AE 50 ML IV ONE (17:00)
--- NOTE | 2019-07-22 17:30 | NUR ---
DR ARENAS AT BEDSIDE, PLACED PLUERX DRAIN INTO RIGHT PLEURAL SPACE USING ULTRASOUND GUIDE. STERILE PROCEDURE PERFORMED WITH RN ASSISTING. 500 ML. PLEURX DRAIN LEFT IN PLACE AND DR PLACED DSG. NURSING TO DRAIN UP TO 1000 ML DAILY AND CHANGE DSG/CAP DAILY. CXR OBTAINED AND DR AWARE OF IMAGE. OK TO CPAP IN AM.
--- NOTE | 2019-07-22 18:00 | NUR ---
DSG CHANGE TO RIGHT SACRUM, NOTED MULTIPLE SKIN TEARS CLEANSED AND PLACED ZGUARD/OPTIFOAM
--- NOTE | 2019-07-22 19:20 | NUR ---
Opening notes Assumed care, laying on bed with her eyes closed, on vent, levophed, bumex and fentanyl infusing in the right IJ, see IV spreadsheet for titration, NGT in place, martinez catheter draining to a pale yellow urine with sediments, right sided pleurx drain dressing intact, still with moderate amount of vaginal bleed. Bed in lowest position with side rails up, bed alarm on. Will continue care.
[2019-07-22] MEDS ORDERED: AMINO ACID INFUSION IN D5W 2,000 ML IV NR (20:00)
[2019-07-22] MEDS: EPINEPHrine HCL 250 ML IV SCH (21:24)
[2019-07-22] MEDS: VASOPRESSIN 50 UNITS in D5W 5% 247.5 ML IV SCH (21:30)
[2019-07-23] VITALS (104 sets, daily range): BP systolic 76–141; BP diastolic 40–81
[2019-07-23] MEDS ORDERED: DEXTROSE (50%) 50ML SYRG IV SCH
--- NOTE | 2019-07-23 02:55 | NUR ---
Patient bathe/linen change/ Oral care Patient given complete bath. Skin integrity assessed for any changes. Linens and gown changed. Patient repositioned for comfort. Oral care done
--- NOTE | 2019-07-23 03:02 | NUR ---
Moderate amount of vaginal bleeding noted, cleansed and kept dry and comfortable,
--- NOTE | 2019-07-23 04:00 | NUR ---
Off fentanyl drip
[2019-07-23 04:47] LABS: Albumin 2.6 g/dL (3.4-5.0); BUN/Creatinine Ratio 25.4; Bilirubin, Total 2.5 mg/dL (0.2-1.0); Calcium 6.3 mg/dL (8.5-10.1); Magnesium 1.9 mg/dL (1.6-2.6); Phosphorus 2.8 mg/dL (2.5-4.90); Pre Albumin 9.7 mg/dL (20.0-40.0); Total Protein 6.4 g/dL (6.4-8.2)
[2019-07-23 04:55] LABS: Potassium 2.9 mmol/L (3.5-5.1)
--- NOTE | 2019-07-23 05:01 | NUR ---
Paged Dr. Murillo and spoke with Dr. Farrell who's concrete crusher loader operator, updated on latest labs and K+ 2.9, orders received to give K rider 40 Meq IV then repeat Potassium after K rider is completed. Will carry out orders.
[2019-07-23] MEDS: methylPREDNISolone SOD SUCC 40 MG/ML VL IV SCH ×3 (05:29→22:00)
[2019-07-23] MEDS: METOCLOPRAMIDE HCL 5MG/ml INJ 2ml VIAL IV SCH ×3 (05:29→22:00)
[2019-07-23] MEDS: POTASSIUM CHL 20MEQ/100ML 100 ML IV SCH ×4 (05:30→14:30)
--- NOTE | 2019-07-23 05:55 | NUR ---
Condition update Still not fully awake, slightly withdraws to pain, unable to move extremities
[2019-07-23] MEDS: ACCU-CHEK COMFORT CURVE STRIP VI SCH ×4 (06:16→23:43)
[2019-07-23] MEDS: MEROPENEM 500MG IVPB 50 ML IV SCH ×2 (06:17→18:56)
[2019-07-23] MEDS: InsuLIN REG 1unit/0.01ml Soln (100units/ml) SC SCH ×4 (06:24→23:45)
[2019-07-23] MEDS: ALBUTEROL SULF 2.5 MG/0.5ML(0.5%) NEB SOLN NEB SCH ×5 (06:25→22:21)
[2019-07-23] MEDS: IPRATROPIUM BROM 0.5 MG/2.5ML INH SOL NEB SCH ×5 (06:25→22:21)
[2019-07-23] MEDS ORDERED: ADENOSINE 6 MG/2 ML INJ IV PRN (06:45)
--- NOTE | 2019-07-23 07:30 | NUR ---
REPORT REPORT RECEIVED FROM NIGHT RN. BEDSIDE CHECK DONE.
--- NOTE | 2019-07-23 08:00 | NUR ---
ASSESSMENT PT IN DROPLET ISOLATION FOR + INFLUENZA A. PT RESTING WITH EYES CLOSED. ON THE VENTILATOR WITH SETTINGS OF: 8 FR ETT/22 AT THE LIP, TV 450, AC 14, 30% FIO2 AND PEEP OF 6. LUNGS WITH INSPIRATORY WHEEZING THROUGHOUT. O2 SAT OF 99%. TELE SR 86. PALPABLE PULSE TO ALL EXTREMITIES. +1 PITTING EDEMA TO THE LEFT ANKLE AND +2 PITTING EDEMA NOTED TO THE RIGHT ANKLE. ABD SOFT WITH HYPOACTIVE BOWEL SOUNDS. NGT TO THE RIGHT NARES WITH + PLACEMENT AND RESIDUAL NOTED SO CONNECTED TO LIS WITH 250 ML OF BROWNISH GREEN BILE RETURNED. NO BM SINCE ADMISSION. DUFF CATHETER DRAINING YELLOW URINE. IVF TO RIJ TLC, SITE BENIGN. TURNED FOR COMFORT. SACRAL OPTIFOAM TO LEFT SACRUM WITH DRY FLAKY SCALY SKIN AND ONE SMALL SKIN TEAR, Z GUARD CRAM IN PLACE, AND OPTIFOAM TO RIGHT SACRUM WITH MULTIPLE SKIN TEARS NOTED. PT TURNED TO HER RIGHT SIDE. CONTINUE TO MONITOR.
[2019-07-23] MEDS: fentaNYL Drip 2500mCg/250mlNS 250 ML IV SCH ×2 (09:53→17:26)
[2019-07-23] MEDS: BUMETANIDE INJECTION 12.5 MG in GIVE UN-DILUTED 0 ML IV SCH ×2 (10:36→22:00)
[2019-07-23] MEDS: OSELTAMIVIR 30 MG CAP PO SCH (10:36)
[2019-07-23] MEDS: PANTOPRAZOLE 40 MG/10 ML VIAL INJ IV SCH (10:37)
[2019-07-23 11:07] LABS: Hematocrit 24.3 % (36.0-46.0); Hemoglobin 8.1 g/dL (12.2-16.2); Mean Corpuscular Hemoglobin 30.2 pg (28.0-32.0); Mean Corpuscular Hgb Conc. 33.5 g/dL (32.0-36.0); Mean Corpuscular Volume 90.1 fL (80.0-100.0); Platelet Count (auto) 89 10^3/uL (140-450); Red Blood Cells 2.69 10^6/uL (4.0-5.20)
[2019-07-23 11:08] LABS: Red Cell Distribution Width 22.6 % (11.8-14.3)
[2019-07-23 11:10] LABS: Band Neutrophils % (manual) 0; Basophils % (manual) 0 (0.0-2.0); Blast Cells 0; Eosinophils % (manual) 0 (0-7); Metamyelocytes % 0; Myelocytes % 0; Promyelocytes % 0; Reactive Lymphocytes 0
[2019-07-23 11:27] LABS: Lymphocytes % (manual) 52 (10.0-50.0); Monocytes % (manual) 2 (0-12)
[2019-07-23 11:35] LABS: White Blood Cell 4.5 10^3/uL (4.4-10.8)
--- NOTE | 2019-07-23 11:53 | NUR ---
FAMILY/CONSENT SPOKE WITH PT'S DAUGHTER, MAYLIN, BY PHONE. INFORMED HER THAT DR WILLIAMSON WOULD LIKE TO PLACE A PLEUREX DRAIN TO THE PT'S LEFT SIDE TOMORROW AND CONSENT OBTAINED. I ALSO UPDATED HER ON THE PT'S CURRENT CONDITION AND ANSWERED HER QUESTIONS.
[2019-07-23] MEDS ORDERED: CALCIUM GLUC 4.65meq/50ml D5AE 50 ML IV ONE (12:00)
[2019-07-23] MEDS ORDERED: VANCOMYCIN 500 MG in D5W 5% 100 ML IV ONE (12:00)
[2019-07-23] MEDS ORDERED: POTASSIUM CHL 20MEQ/100ML 200 ML IV ONE (12:02)
[2019-07-23] MEDS: MAGNESIUM SULFATE 1GM/100ML 100 ML IV SCH ×2 (14:00→15:00)
--- NOTE | 2019-07-23 14:00 | NUR ---
PLEUREX DRAIN TO THE RIGHT CHEST CONNECTED TO VACUUM BOTTLE AND DRAINED 200 ML OF YELLOWISH/DARK RED FLUID. AREA AROUND DRAIN CLEANED WITH CHLORAPREP AND A DRESSING APPLIED ALONG WITH FOAM TO PROTECT HER SKIN FROM THE TUBING. TOLERATED WELL BY THE PT.
[2019-07-23] MEDS: PROPOFOL 100 ML IV SCH (15:13)
--- NOTE | 2019-07-23 15:51 | NUR ---
Midline Placement: 18g/10cm midline inserted via right basilic vein using Ultrasound. Sterile technique utilized. Blood return obtained from lumen and flushed easily with NS using proper technique. Midline secured with saline lock; biodisc and occlusive dressing applied. Primary RN notified. Midline lot #[id number]
[2019-07-23] MEDS: MIDAZOLAM DRIP 50 mg/50mL 50 ML IV SCH (16:03)
[2019-07-23] MEDS: NOREPINEPHRINE 8 MG/250ML KIT 250 ML IV SCH (17:30)
--- NOTE | 2019-07-23 19:20 | NUR ---
REPORT REPORT GIVEN TO NIGHT RNAMBAR. BEDSIDE CHECK DONE.
--- NOTE | 2019-07-23 19:30 | NUR ---
OPEN ASSUMED CARE OF FEMALE PT ORALLY INTUBATED. PT OFF SEDATION. WITHDRAWS TO PAIN OTHERWISE NON RESPONSIVE. SR ON EMISSIONS ENGINEER. LEVOPHED GTT RUNNING AT 3 MCG/MIN, BUMEX GTT AT 0.5 MG/HR. R. IJ TLC IN PLACE WITH CDI DRESSING. ALL PORTS PATENT. R. UPPER ARM MIDLINE IN PLACE WITH CDI DRESSING. R. NARE NGT CLAMPED/PLACEMENT VERIFIED. R. LAT CHEST PLEUREX DRAIN IN PLACE WITH CDI DRESSING. DUFF TO GRAVITY DRAINING CLEAR YELLOW URINE. VICENTA SCD'S IN PLACE. OPTIFOAM GENTLE SACRAL DRESSINGS IN PLACE OVER MASD AND SKIN TEARS. PILLOWS USED TO OFFLOAD BONY PROMINENCES AND VICENTA HEELS. NO INDICATION OF PAIN OBSERVED. BED IN LOWEST LOCKED POSITION. SIDE RAILS UP X 2. PT IN FULL VIEW OF RN STATION. WILL CONTINUE TO MONITOR.
[2019-07-23] MEDS ORDERED: TPN PER PHARMACY IV NR ×9 (20:00)
--- NOTE | 2019-07-23 20:00 | NUR ---
NEURO PT WHO IS OFF SEDATION OPENS EYES DURING TURNING. GRIMACE DURING ORAL CARE. UNABLE TO FOLLOW COMMANDS AT THIS TIME. WILL CONTINUE TO MONITOR.
[2019-07-23] MEDS: EPINEPHrine HCL 250 ML IV SCH (21:24)
[2019-07-24] VITALS (107 sets, daily range): BP systolic 85–129; BP diastolic 42–80
[2019-07-24] MEDS: IPRATROPIUM BROM 0.5 MG/2.5ML INH SOL NEB SCH ×6 (02:08→22:38)
[2019-07-24] MEDS: ALBUTEROL SULF 2.5 MG/0.5ML(0.5%) NEB SOLN NEB SCH ×6 (02:08→22:38)
--- NOTE | 2019-07-24 03:30 | NUR ---
Patient bathe/linen change Patient given complete bath. Skin integrity assessed for any changes. Linens changed. SACRUM AREA CLEANSED WITH WARM SOAPY WATER. PAT DRY. ZGUARD BARRIER OINTMENT APPLIED. NEW OPTIFOAM GENTLE SACRAL DRESSING APPLIED. Patient repositioned for comfort.
[2019-07-24 03:55] LABS: Hematocrit 26.6 % (36.0-46.0); Hemoglobin 8.9 g/dL (12.2-16.2); Mean Corpuscular Hemoglobin 30.5 pg (28.0-32.0); Mean Corpuscular Hgb Conc. 33.5 g/dL (32.0-36.0); Mean Corpuscular Volume 91.1 fL (80.0-100.0); Platelet Count (auto) 74 10^3/uL (140-450); Red Blood Cells 2.92 10^6/uL (4.0-5.20)
[2019-07-24 04:04] LABS: Red Cell Distribution Width 22.6 % (11.8-14.3)
[2019-07-24 04:05] LABS: Basophils % (manual) 0 (0.0-2.0); Blast Cells 0; Eosinophils % (manual) 0 (0-7); Metamyelocytes % 0; Myelocytes % 0; Promyelocytes % 0; Reactive Lymphocytes 0
[2019-07-24 04:20] LABS: Potassium 3.1 mmol/L (3.5-5.1)
[2019-07-24 04:32] LABS: Albumin 2.6 g/dL (3.4-5.0); BUN/Creatinine Ratio 28.2; Bilirubin, Total 2.4 mg/dL (0.2-1.0); Calcium 6.9 mg/dL (8.5-10.1); Magnesium 2.1 mg/dL (1.6-2.6); Phosphorus 2.5 mg/dL (2.5-4.90); Total Protein 6.4 g/dL (6.4-8.2)
[2019-07-24 04:43] LABS: Band Neutrophils % (manual) 2; Lymphocytes % (manual) 44 (10.0-50.0); Monocytes % (manual) 10 (0-12)
[2019-07-24 04:48] LABS: White Blood Cell 5.4 10^3/uL (4.4-10.8)
[2019-07-24] MEDS: MEROPENEM 500MG IVPB 50 ML IV SCH ×2 (05:53→17:50)
[2019-07-24] MEDS: METOCLOPRAMIDE HCL 5MG/ml INJ 2ml VIAL IV SCH ×3 (05:53→21:44)
[2019-07-24] MEDS: methylPREDNISolone SOD SUCC 40 MG/ML VL IV SCH ×3 (05:53→21:44)
[2019-07-24] MEDS: ACCU-CHEK COMFORT CURVE STRIP VI SCH ×3 (05:54→17:50)
[2019-07-24] MEDS: InsuLIN REG 1unit/0.01ml Soln (100units/ml) SC SCH ×3 (05:54→18:23)
--- NOTE | 2019-07-24 06:03 | NUR ---
K+ 3.[address] GEE REGARDING AM K+ LEVEL 3.1 AND PT ON BUMEX GTT. AWAIT C/B
--- NOTE | 2019-07-24 06:21 | NUR ---
DR REDDY CALLED UNIT UPDATED MD REGARDING AM LABS. ORDERS RECEIVED.
[2019-07-24] MEDS: POTASSIUM CHL 20MEQ/100ML 100 ML IV SCH ×2 (06:45→08:30)
--- NOTE | 2019-07-24 07:30 | NUR ---
REPORT REPORT RECEIVED AND BEDSIDE CHECK DONE.
--- NOTE | 2019-07-24 08:25 | NUR ---
PT TEACHING PT UNABLE TO BENEFIT FROM PT TEACHING AT THIS TIME SHE IS NOT RESPONSIVE ENOUGH. Addendum: 07/24/19 at 2010 by Marissa Davidson RN Amended: Links added.
--- NOTE | 2019-07-24 08:25 | NUR ---
ASSESSMENT PT IN DROPLET PRECAUTION ISOLATION FOR + INFLUENZA A . PT RESTING IN BED WITH EYES OPEN BUT DOES NOT TRACK OR FOLLOW ANY COMMANDS. ON THE VENTILATOR BUT NOT SEDATED. VENT SETTINGS: 8 FR ET/ 22 AT THE LIP, TV450, AC 14, 30% AND PEEP OF 6. LUNGS CLEAR THROUGHOUT BUT DIMINISHED AT THE BASES POSTERIOR. TELE SR 97. ABD SOFT WITH HYPOACTIVE BOWEL SOUNDS. RIGHT NARES NGT WITH + PLACEMENT AND NO RESIDUAL NOTED. DUFF CATHETER DRAINING YELLOW URINE WITH CLOUDY LOOKING WHITE CHUNKS. NO BM SINCE ADMISSION. SDS TO BLE. TURNED FOR COMFORT TO HER RIGHT SIDE. MASERATION WITH OPEN AREAS TO BOTH SIDES OF THE SACRUM/UPPER BUTTOCKS WITH OPTIFOAM DRESSINGS IN PLACE. PT WITH TLC TO THE RIJ, SITE BENIGN. CONTINUE TO MONITOR.
--- NOTE | 2019-07-24 09:00 | NUR ---
SEDATION VACATION PT NOT SEDATED . WAITING FOR PT TO WAKE SO WE CAN PROCEED WITH A CPAP TRIAL. Addendum: 07/24/19 at 1547 by Marissa Davidson RN Amended: Links added.
[2019-07-24] MEDS: PANTOPRAZOLE 40 MG/10 ML VIAL INJ IV SCH (10:05)
[2019-07-24] MEDS: OSELTAMIVIR 30 MG CAP PO SCH (10:05)
--- NOTE | 2019-07-24 11:15 | NUR ---
DR WILLIAMSON AT THE BEDSIDE AND PLACED A PLEUREX DRAIN TO THE LEFT CHEST AND DRAINED 850ML CLOUDY REDDISH BROWN FLUID. DRESSING APPLIED. BP DROPPED INTO THE 80'S AMD TITRATING THE LEVOPHED FOR SBP OF 90 OR GREATER. Addendum: 07/24/19 at 2052 by Marissa Davidson RN DRAINED THE PLEUREX TO THE RIGHT OF 190 ML OF CLOUDY REDDISH YELLOW FLUID.
--- NOTE | 2019-07-24 13:37 | NUR ---
Respiratory note: UNABLE TO CONTINUE CPAP TRIAL AT THIS TIME. PT HAD A LOT OF APNEIC EPISODES. RN AT BEDSIDE AND AWARE OF FAILED CPAP TRIAL.
[2019-07-24] MEDS: PROPOFOL 100 ML IV SCH (15:13)
[2019-07-24] MEDS: MIDAZOLAM DRIP 50 mg/50mL 50 ML IV SCH (16:03)
[2019-07-24] MEDS: fentaNYL Drip 2500mCg/250mlNS 250 ML IV SCH (17:26)
[2019-07-24] MEDS: NOREPINEPHRINE 8 MG/250ML KIT 250 ML IV SCH (18:11)
[2019-07-24] MEDS ORDERED: TPN PER PHARMACY IV NR ×11 (20:00)
[2019-07-24] MEDS ORDERED: VANCOMYCIN 500 MG in D5W 5% 100 ML IV ONE (20:00)
--- NOTE | 2019-07-24 20:49 | NUR ---
OPEN ASSUMED CARE OF FEMALE PT ORALLY INTUBATED. PT OFF SEDATION. PT WITH EYES OPEN. ABLE TO TRACK. ABLE TO NOD HEAD YES OR NO TO SIMPLE QUESTIONS. SINUS TACH ON TOOL PLANNER. LEVOPHED GTT RUNNING AT 2.5 MCG/MIN, BUMEX GTT AT 0.5 MG/HR. R. IJ TLC IN PLACE WITH CDI DRESSING. ALL PORTS PATENT. R. UPPER ARM MIDLINE IN PLACE WITH CDI DRESSING. R. NARE NGT CLAMPED/PLACEMENT VERIFIED. R. LAT CHEST PLEUREX DRAIN IN PLACE WITH CDI DRESSING. L. LATERAL CHEST PLEUREX DRAIN IN PLACE WITH CDI DRESSING. TUBING FOR PLEUREX DRAINS ISOLATED TO CHEST BALDWIN. THEY ARE DRAINED DAILY BY DAY SHIFT RN. DUFF TO GRAVITY DRAINING YELLOW URINE WITH SEDIMENT. VICENTA SCD'S IN PLACE. OPTIFOAM GENTLE SACRAL DRESSINGS IN PLACE OVER MASD AND SKIN TEARS. PILLOWS USED TO OFFLOAD BONY PROMINENCES AND VICENTA HEELS. NO INDICATION OF PAIN OBSERVED. BED IN LOWEST LOCKED POSITION. SIDE RAILS UP X 2. PT IN FULL VIEW OF RN STATION. WILL CONTINUE TO MONITOR.
--- NOTE | 2019-07-24 20:49 | NUR ---
REPORT REPORT GIVEN TO AMBAR MEHTA RN.
[2019-07-24] MEDS: EPINEPHrine HCL 250 ML IV SCH (21:24)
--- NOTE | 2019-07-24 22:00 | NUR ---
RECEIVED REPORT RECEIVED REPORT FROM BOW STRING MAKER, ASSUMING CARE.
[2019-07-24] MEDS: BUMETANIDE INJECTION 12.5 MG in GIVE UN-DILUTED 0 ML IV SCH (22:53)
[2019-07-25] VITALS (105 sets, daily range): BP systolic 83–133; BP diastolic 49–82
[2019-07-25] MEDS: ACCU-CHEK COMFORT CURVE STRIP VI SCH ×4 (00:17→19:00)
[2019-07-25] MEDS: InsuLIN REG 1unit/0.01ml Soln (100units/ml) SC SCH ×4 (00:22→19:08)
[2019-07-25] MEDS: ALBUTEROL SULF 2.5 MG/0.5ML(0.5%) NEB SOLN NEB SCH ×6 (02:26→22:25)
[2019-07-25] MEDS: IPRATROPIUM BROM 0.5 MG/2.5ML INH SOL NEB SCH ×6 (02:26→22:25)
[2019-07-25 04:52] LABS: Albumin 2.5 g/dL (3.4-5.0); Calcium 7.2 mg/dL (8.5-10.1); Magnesium 1.9 mg/dL (1.6-2.6)
[2019-07-25 04:54] LABS: BUN/Creatinine Ratio 36.9
[2019-07-25 04:57] LABS: Bilirubin, Total 2.7 mg/dL (0.2-1.0); Total Protein 6.5 g/dL (6.4-8.2)
[2019-07-25 04:59] LABS: Potassium 2.6 mmol/L (3.5-5.1)
--- NOTE | 2019-07-25 05:07 | NUR ---
PAGEJosr MO REGARDING LOW K K 2.6
--- NOTE | 2019-07-25 05:36 | NUR ---
MD RETURNED CALL SPOKE TO MAUREEN REGARDING LOW K 2.6 NO NEW ORDERS, WILL ROUND PT IN MORNING
[2019-07-25] MEDS: MEROPENEM 500MG IVPB 50 ML IV SCH (06:04)
[2019-07-25] MEDS: METOCLOPRAMIDE HCL 5MG/ml INJ 2ml VIAL IV SCH ×3 (06:05→22:30)
[2019-07-25] MEDS: methylPREDNISolone SOD SUCC 40 MG/ML VL IV SCH ×3 (06:05→22:30)
[2019-07-25] MEDS ORDERED: POTASSIUM CHLORIDE 80 MEQ, LIDOCAINE 1% (LOCAL ANESTH.) 6 ML in SODIUM CHL 0.9% 500 ML IV ONE (08:00)
--- NOTE | 2019-07-25 08:00 | NUR ---
OPEN : STATUS RECEIVED REPORT FROM NIGHT RN. ASSUMED CARE OF ICU PATIENT, FULL CODE STATUS. SEE CASING FINISHER AND STUFFER, IV SPREAD SHEET AND V/S FLOW SHEET FOR FURTHER PATIENT INFORMATION. WILL CONTINUE TO MONITOR.
--- NOTE | 2019-07-25 08:00 | NUR ---
PAIN: MEDICATION GIVEN PRN PATIENT WAS PREVIOUSLY TURNED TO THE SIDE BUT LOOKS IN PAIN. PATIENT ASKED IF SHE IS IN PAIN, PATIENT NODS HEAD " YES." PATIENT ALSO HAVING V.S CHANGES WITH FACIAL GRIMACING. PATIENT GIVEN X1 OF PRN DILAUDID 0.5MG IVP PER DR. LUTHER'S ORDER. SEE EMAR FOR REASSESSMENT. Addendum: 07/26/19 at 1230 by June Tovar RN ABOVE NOTE TO BE MADE FOR 07/25/2019 AT 0130.
[2019-07-25] MEDS: PANTOPRAZOLE 40 MG/10 ML VIAL INJ IV SCH (09:00)
[2019-07-25] MEDS ORDERED: HYDROmorphone HCL 2 MG/ML VL IV ONE (11:30)
--- NOTE | 2019-07-25 14:35 | NUR ---
PT SEEN AND EXAMINED BY DR LUTHER. HE SPOKE WITH DR WILLIAMSON AND ORDER RECEIVED FOR CPAP TRIAL WITH PRESSURE SUPPORT OF 7 AND PEEP OF 5. PAGED AND NOTIFIED RT MARTHA.
--- NOTE | 2019-07-25 14:45 | NUR ---
DR. LUTHER AT BEDSIDE: ORDERS MD UPDATED ON PT'S CURRENT STATUS, LABS AND POC FOR TODAY. MD INFORMED THAT PATIENT IS HAVING PAIN WHEN ASKING HER SIMPLE QUESTIONS AND V/S CHANGES. MD VERBALIZES UNDERSTANDING. ORDERS GIVEN AND TO BE CARRIED OUT. CONTINUE CARE. DR. LUTHER ALSO TALKED OVER THE PHONE WITH PATIENT'S FAMILY MEMBER ABOUT PATIENT CURRENT STATUS AND POC. WILL CONTINUE TO MONITOR.
--- NOTE | 2019-07-25 15:00 | NUR ---
Respiratory note: PLACED PT ON CPAP TRIAL PER ORDERS. PT DID NOT TOLERATE CPAP MORE THAN A MINUTE. PT HAD APNEA EPISODES X5. HR 94, RR 5, POX 99%. BP 111/61. PT WAS PLACED BACK ON PREVIOUS SETTINGS. RN AWARE OF CHANGES.
--- NOTE | 2019-07-25 15:00 | NUR ---
FAILED CPAP TRIAL AT THIS TIME R.T. AT BEDSIDE. PATIENT ONLY LASTED A FEW MINUTES ON CPAP MODE ON VENT. R.T STATES, PATIENT HAD X5 APNEA PERIODS. R.T. THEN PLACED PATIENT BACK ON AC MODE WITH PREVIOUS SETTINGS. WILL CONTINUE TO MONITOR.
--- NOTE | 2019-07-25 16:18 | NUR ---
WOUND CARE NOTE: Wound care in to see patient for reevaluation of wounds. Patient continue resting in ICU premium bed in Rm. 112. Patient is resting in bed, intubated and mechanically ventilated. Patient is awake, respond to verbal and tactile stimuli. Patient appears to be in no pain using Bowser Armstrong Faces Pain Scale, however mild pain noted upon turning. Skin assessment done with the assistance of patient's nurse, JASON Watkins. Patient's Lt buttock has dry peeling skin.Rt buttocks noted with skin erosion with 4x6cm open, bleeding skin tear. Wound is red with dry peeling skin to periwound. Cleansed patient's sacral, buttocks with mild soap and water, photograph taken for reference and changed the dressing as ordered. Repositioned patient for comfort facing her Rt. side,redistributed pressure points with pillows. Patient tolerated well. JASON Watkins at bedside. Patient is on TPN and Dietary is on board. RECOMMENDATION: Continuation of all wound care order prescribed by MD, continue with skin/wound plan of care, frequent cade check/care, keep clean and dry, continue monitoring by wound care while patient is hospitalized. Addendum: 07/25/19 at 1651 by Priscila Santo RN Amended: Links added.
[2019-07-25] MEDS: INSULIN LANTUS (GLARGINE) 1 /0.01ml (100units/ml) SC SCH (16:30)
[2019-07-25] MEDS: NOREPINEPHRINE 8 MG/250ML KIT 250 ML IV SCH (16:30)
--- NOTE | 2019-07-25 16:35 | NUR ---
NUTRITION FOLLOWUP NOTES Pt wt is 74.5 kg Pt is intubated, with TPN @ 52 ml/hr, providing 1020 kcals, 60g protein, 780 NPcs, and 4% fat. Pt with inadequate energy intake from PN support aeb 55% to 68% of est caloric needs. Protein intake from PN support is inadequate aeb 62% to 80% protein needs. RN noted pending CPAP trial per MD approval today. Will continue to monitor NPO status, skin status, pertinent labs and weight trends. Will f/u in 2 to 3 days. Est. Energy Needs: 3423-9008 kcal (20-25 kcal/kg BW). Est. Protein Needs: 75-97 gms/day (1.0-1.3 gms/kg BW). Will continue to monitor pertinent labs and reassess nutrient need prn LABS: NA 134 L, POT 2.6 L, BUN 59 H, CR 1.6 H, GFR 35 L, GLUC 294 H, CA 7.2 L, ALB 2.5 L GI: No BM since 07/18/19 per electric blanket packer BS: 14 moderate risk Please refer to wound assessment report for full details. PES: Problem 1) Altered nutrition related lab values r/t current medical condition 2) Inadequate nutrient intake r/t current energy and protein needs Comments Will continue to monitor NPO status, skin status, pertinent labs and weight trend. F/u in 2 to 3 days. Recommendations: 1) If still NPO in 48 hours, consider initiating EN support with Jevity 1.2 Josesito @60 ml/hr goal rate, as tolerated. 2) Advance gradually to oral 2g Na diet when medically appropriate. 3) Continue current plan of care.
[2019-07-25] MEDS: HYDROmorphone HCL 2 MG/ML VL IV PRN ×2 (16:54→22:59)
[2019-07-25] MEDS: MIDAZOLAM DRIP 50 mg/50mL 50 ML IV SCH (16:57)
[2019-07-25] MEDS: PROPOFOL 100 ML IV SCH (16:57)
[2019-07-25] MEDS: fentaNYL Drip 2500mCg/250mlNS 250 ML IV SCH (19:07)
[2019-07-25] MEDS: MEROPENEM 1GM IVPB 100 ML IV SCH (19:20)
[2019-07-25] MEDS ORDERED: TPN PER PHARMACY IV NR ×10 (20:00)
[2019-07-25] MEDS: TPN PER PHARMACY IV NR ×10 (20:00)
--- NOTE | 2019-07-25 20:00 | NUR ---
OPEN ASSUMED CARE OF FEMALE PT ORALLY INTUBATED. PT OFF SEDATION. PT WITH EYES OPEN. ABLE TO TRACK. ABLE TO NOD HEAD YES OR NO TO SIMPLE QUESTIONS. PT ABLE TO MOVE VICENTA UPPER EXTREMITIES. SINUS TACH ON COLLECTIONS CLERK. LEVOPHED GTT RUNNING AT 2.0 MCG/MIN, BUMEX GTT AT 0.5 MG/HR. R. IJ TLC IN PLACE WITH CDI DRESSING. ALL PORTS PATENT. R. UPPER ARM MIDLINE IN PLACE WITH CDI DRESSING. R. NARE NGT CLAMPED/PLACEMENT VERIFIED. R. LAT CHEST PLEUREX DRAIN IN PLACE WITH CDI DRESSING. L. LATERAL CHEST PLEUREX DRAIN IN PLACE WITH CDI DRESSING. TUBING FOR PLEUREX DRAINS ISOLATED TO CHEST BALDWIN. THEY ARE DRAINED DAILY BY DAY SHIFT RN. DUFF TO GRAVITY DRAINING YELLOW URINE WITH SEDIMENT. VICENTA SCD'S IN PLACE. OPTIFOAM GENTLE SACRAL DRESSINGS IN PLACE OVER MASD WITH OPEN AREAS. PILLOWS USED TO OFFLOAD BONY PROMINENCES AND VICENTA HEELS. NO INDICATION OF PAIN OBSERVED. BED IN LOWEST LOCKED POSITION. SIDE RAILS UP X 2. PT IN FULL VIEW OF RN STATION. WILL CONTINUE TO MONITOR.
[2019-07-25 20:06] LABS: BUN/Creatinine Ratio 45.9; Calcium 6.9 mg/dL (8.5-10.1); Potassium 3.4 mmol/L (3.5-5.1)
--- NOTE | 2019-07-25 20:32 | NUR ---
PAGED DR REDDY TO UPDATE LABS UPDATED DR REDDY REGARDING MOST RECENT LABS . ORDERS RECEIVED.
--- NOTE | 2019-07-25 20:39 | NUR ---
FAMILY CALL PT'S MOTHER ELIAS CALLED UNIT FOR UPDATE ON PT CONDITION. AFTER PASSWORD GIVEN BY ELIAS, UPDATE PROVIDED. ALL QUESTIONS AND CONCERNS ADDRESSED.
[2019-07-25] MEDS: EPINEPHrine HCL 250 ML IV SCH (21:24)
--- NOTE | 2019-07-25 21:38 | NUR ---
SEDATION VACATION PT OFF SEDATION FOR SEVERAL DAYS. Addendum: 07/25/19 at 2138 by Kenya Humphreys RN Amended: Links added.
[2019-07-25] MEDS: POTASSIUM CHL 20MEQ/100ML 100 ML IV SCH (22:30)
--- NOTE | 2019-07-25 22:50 | NUR ---
PAIN PT GRIMACING ON VENT. ASKED PT IF HAVING PAIN. PT NODS HEAD YES. MEDICATED WITH DILAUDID SIVP PER ORDER. SEE EMAR.
[2019-07-26] VITALS (83 sets, daily range): BP systolic 93–136; BP diastolic 51–75
[2019-07-26] MEDS: ACCU-CHEK COMFORT CURVE STRIP VI SCH ×5 (00:30→23:49)
[2019-07-26] MEDS: POTASSIUM CHL 20MEQ/100ML 100 ML IV SCH ×3 (00:40→18:31)
[2019-07-26] MEDS: InsuLIN REG 1unit/0.01ml Soln (100units/ml) SC SCH ×5 (00:45→23:49)
[2019-07-26] MEDS: BUMETANIDE INJECTION 12.5 MG in GIVE UN-DILUTED 0 ML IV SCH (00:53)
[2019-07-26] MEDS: IPRATROPIUM BROM 0.5 MG/2.5ML INH SOL NEB SCH ×6 (02:16→22:15)
[2019-07-26] MEDS: ALBUTEROL SULF 2.5 MG/0.5ML(0.5%) NEB SOLN NEB SCH ×6 (02:16→22:15)
[2019-07-26 05:23] LABS: Basophils # (auto) 0 10 ^3/uL (0-0.2); Basophils % (auto) 0.5 % (0.0-2.0); Eosinophils # (auto) 0 10 ^3/uL (0-0.8); Eosinophils % (auto) 0.5 % (0.0-7.0); Hematocrit 25.9 % (36.0-46.0); Hemoglobin 8.6 g/dL (12.2-16.2); Lymphocytes # (auto) 1.7 10 ^3/uL (0.4-5.4); Lymphocytes % (auto) 18.2 % (10.0-50.0); Mean Corpuscular Hemoglobin 30.5 pg (28.0-32.0); Mean Corpuscular Hgb Conc. 33.3 g/dL (32.0-36.0); Mean Corpuscular Volume 91.6 fL (80.0-100.0); Monocytes # (auto) 0.8 10 ^3/uL (0-1.3); Monocytes % (auto) 8.9 % (0.0-12.0); Neutrophils # (auto) 6.7 10 ^3/uL (1.6-8.6); Neutrophils % (auto) 71.9 % (37.0-80.0); Platelet Count (auto) 30 10^3/uL (140-450); Red Blood Cells 2.83 10^6/uL (4.0-5.20); White Blood Cell 9.4 10^3/uL (4.4-10.8)
[2019-07-26 05:25] LABS: Nucleated Red Blood Cells % 32.1 %; Red Cell Distribution Width 22.7 % (11.8-14.3)
[2019-07-26 05:50] LABS: Albumin 2.4 g/dL (3.4-5.0); Calcium 6.9 mg/dL (8.5-10.1); Potassium 3.4 mmol/L (3.5-5.1)
[2019-07-26 05:54] LABS: BUN/Creatinine Ratio 49.3; Bilirubin, Total 2.2 mg/dL (0.2-1.0); Phosphorus 3.6 mg/dL (2.5-4.90); Total Protein 6.3 g/dL (6.4-8.2)
[2019-07-26] MEDS: methylPREDNISolone SOD SUCC 40 MG/ML VL IV SCH ×3 (06:15→22:16)
[2019-07-26] MEDS: MEROPENEM 1GM IVPB 100 ML IV SCH ×2 (06:15→17:52)
[2019-07-26] MEDS: HYDROmorphone HCL 2 MG/ML VL IV PRN ×3 (06:15→18:31)
[2019-07-26] MEDS: METOCLOPRAMIDE HCL 5MG/ml INJ 2ml VIAL IV SCH ×3 (06:15→22:13)
--- NOTE | 2019-07-26 07:30 | NUR ---
ASSESS- PT. LYING IN BED ON VENT SIZE #8.0 ET, 22 AT LIP, AC-14, TV-450, PEEP-6, FIO2-30%. LUNGS CLEAR VICENTA. INSPIRATORY AND EXPIRATORY, DIMINISHED BASES VICENTA. PT. HAS HYPOACTIVE GAG/COUGH. OPENS EYES SPONTANEOUSLY, TRACKS. NO SEDATION. ABLE TO FOLLOW SIMPLE COMMANDS WHEN ASKED QUESTIONS AND NODS HEAD APPROPRIATELY TO YES/NO QUESTIONS. DENIES ANY PAIN OR DISCOMFORT AT THIS TIME. VICENTA. HAND MITTENS IN PLACE TO PREVENT PULLING OF TUBES. NGT RT. NARE INTACT, CLAMPED. ABD. SOFT, FLAT. BOWEL SOUNDS ALL FOUR QUADRANTS. F/C TO GRAVITY WITH YELLOW URINE WITH SEDIMENT. RADIAL PULSES STRONG, PALPABLE VICENTA. DORSALIS PEDAL PULSES STRONG, PALPABLE VICENTA. SCD'S VICENTA. LE. TLC RT. IJ INTACT. TPN AT 52 CC/HR. BUMEX GTT. AT 0.5 MG./HR. LEVOPHED GTT. OFF. SBP ONE TEENS TO 120'S. MID-LINE MARIJA INTACT. COCCYX WITH 2 SM. OPEN AREAS WITH TRIAD CREAM WITH OPTIFOAM DSG. D/I. LT. HIP WITH PEELING SKIN WITH OPTIFOAM DSG. D/I.
[2019-07-26] MEDS: PANTOPRAZOLE 40 MG/10 ML VIAL INJ IV SCH (09:31)
--- NOTE | 2019-07-26 09:40 | NUR ---
DRAINED PT'S. RT. SIDED PLEURAX DRAIN USING STERILE TECHNIQUE ORDERED BY DR. ARENAS AND 140 CC CLEAR LUCIANA DRAINAGE CAME OUT. CHANGED CAP ON PLEURAX DRAIN AND CHANGED DSG. ON RT. LATERAL CHEST. DRAINED PT'S. LT. SIDED PLEURAX DRAIN USING STERILE TECHNIQUE ORDERED AND 250 CC CLEAR LUCIANA DRAINAGE CAME OUT. CHANGED CAP ON PLEURAX DRAIN AND CHANGED DSG. TO LT. LATERAL CHEST.
[2019-07-26] MEDS ORDERED: POTASSIUM CHL 20MEQ/100ML 100 ML IV ONE (10:00)
--- NOTE | 2019-07-26 10:29 | NUR ---
PT. HAS FACIAL GRIMACING, ASKED IF HAVING PAIN AND SHOOK HEAD TO YES APPROPRIATELY. MED. PT. WITH DILAUDID 0.5 MG. IVP.
--- NOTE | 2019-07-26 10:59 | NUR ---
PT. NO LONGER FACIAL GRIMACING. NO SIGNS OF DISTRESS. NO LONGER HAVING PAIN WHEN ASKED.
[2019-07-26] MEDS ORDERED: VANCOMYCIN 750mg/250ml 250 ML IV ONE (11:00)
--- NOTE | 2019-07-26 11:30 | NUR ---
DR. REDDY AT BEDSIDE: ORDERS MD UPDATED ON PT'S STATUS, LABS FOR TODAY AND CURRENT POC. OTHER ORDERS GIVEN AND TO BE CARRIED OUT.POTASSIUM REPLACEMENT ORDER GIVEN FOR THIS AM'S K+ 2.6. WILL CONTINUE TO MONITOR. Addendum: 07/26/19 at 1216 by June Tovar RN ABOVE NOTE WAS TO BE MADE FOR 07/25/2019 AT 1115.
--- NOTE | 2019-07-26 12:45 | NUR ---
DR. ARENAS Provider/Hospitalist at bedside. GAVE UPDATE ON PT. NEW ORDERS RECEIVED.
--- NOTE | 2019-07-26 12:58 | NUR ---
Respiratory note: PT PLACED ON CPAP TRIAL ON PS OF 7, PEEP +[address] WILLIAMSON ORDER. RN AWARE. PT TOLERATING VENT CHANGE WELL. SPO2 98% ON 30% FIO2, HR 118, RR 25, BP 126/68. BS CLEAR/DIMINISHED BILATERALLY. WILL CONTINUE TO MONITOR PT.
--- NOTE | 2019-07-26 12:58 | NUR ---
JOHN RT PLACED PT. ON CPAP TRIAL WITH PRESSURE-7 AND PEEP-5, FIO2-30% PER DR. ARENAS'S ORDER. PT. IS AWAKE AND ALERT. FOLLOWS SIMPLE COMMANDS. EYES OPEN SPONTANEOUSLY AND TRACKS. ON NO SEDATION. VASOPRESSOR OFF. VSS. PT. IS CALM AND RELAXED. VICENTA. HAND MITTENS IN PLACE TO PREVENT PULLING OF TUBES.
[2019-07-26] MEDS: PROPOFOL 100 ML IV SCH (13:22)
[2019-07-26] MEDS: NOREPINEPHRINE 8 MG/250ML KIT 250 ML IV SCH (14:11)
[2019-07-26] MEDS: MIDAZOLAM DRIP 50 mg/50mL 50 ML IV SCH (14:11)
[2019-07-26] MEDS: fentaNYL Drip 2500mCg/250mlNS 250 ML IV SCH (14:12)
--- NOTE | 2019-07-26 14:25 | NUR ---
DR. LUTHER Provider/Hospitalist at bedside. GAVE UPDATE ON PT.
--- NOTE | 2019-07-26 14:43 | NUR ---
Patient extubated by RT Extubation order received by , RT at bedside. Patient extubated with no problems, patient tolerated well. Patient placed on % cool mist mask. Sats prior to extubation %, following extubation %. Continue to monitor.
--- NOTE | 2019-07-26 14:43 | NUR ---
Respiratory note: DR WILLIAMSON GAVE ORDER TO EXTUBATE PT POST CPAP ABG, AND WEANING PARAMETERS OF RSBI 54, NIF -22, VC 404, LEAK 239. PT EXTUBATED, AND PLACED ON COOL AEROSOL VIA MASK ON 30% FIO2. PT TOLERATED EXTUBATION WELL. SPO2 98%, HR 127, RR 23, BP 124/64, BS CLEAR/DIMINISHED. RN AT BED SIDE. WILL CONTINUE TO MONITOR PT.
--- NOTE | 2019-07-26 16:30 | NUR ---
RR UPPER TEENS TO LOW 20'S. O2 SATS 97%-98% ON COOL MIST MASK FIO2 30%. LUNGS CLEAR VICENTA. INSPIRATORY AND EXPIRATORY, DIMINISHED BASES VICENTA. NO SOB. NO COUGH. NO SIGNS OF RESP. DISTRESS.
--- NOTE | 2019-07-26 18:31 | NUR ---
PT. SAID SHE IS HAVING PAIN GENERALIZED WHEN ASKED 6 ON A SCALE OF 0-10. MED. WITH DILAUDID 0.5 MG. IVP.
--- NOTE | 2019-07-26 19:00 | NUR ---
REPORT REPORT RECEIVED FROM JASON DEE
--- NOTE | 2019-07-26 19:01 | NUR ---
PT. NO LONGER HAVING ANY PAIN.
[2019-07-26] MEDS: TPN PER PHARMACY IV NR ×10 (19:41)
--- NOTE | 2019-07-26 19:50 | NUR ---
NGT PULLED OUT BY PATIENT NGT WAS PULLED OUT BY PATIENT. SHE DID KNOW WHAT HAPPENED. MITTENS PLACED BACK ON BOTH HANDS. PATIENT DOES NOT KNOW WHERE SHE IS OR WHAT IS HAPPENING RE-ORIENTED TO PERSON,TIME,PLACE AND SITUATION WILL CONTINUE TO MONITOR
--- NOTE | 2019-07-26 19:55 | NUR ---
ASSESS PATIENT ORIENTED TO PERSON ONLY. RE-ORIENTED ON PLACE,TIME AND SITUATION. PATIENT IS WEAK ON ALL EXTREMITIES. COMPLAINS OF PAIN WHOLE BODY - WAS JUST GIVEN IV PAIN MEDICATION AT 1830HRS. REPOSITIONED FOR COMFORT, ORAL CARE DONE. ON COOL MIST MASK,LUNG SOUNDS CLEAR DIMINISHED. ENCOURAGED TO DO DEEP BREATHING EXERCISES. PROPPED UP FULL ASSESSMENT DONE-REFER INTERVENTIONS
[2019-07-26] MEDS ORDERED: TPN PER PHARMACY IV NR ×10 (20:00)
[2019-07-26] MEDS: EPINEPHrine HCL 250 ML IV SCH (21:24)
[2019-07-26] MEDS: INSULIN LANTUS (GLARGINE) 1 /0.01ml (100units/ml) SC SCH (22:21)
--- NOTE | 2019-07-26 23:50 | NUR ---
PATIENT RESTING, VS STABLE NC 2L/MIN, SATS GOOD REPOSITIONED WILL CONTINUE TO MONITOR
[2019-07-27] VITALS (24 sets, daily range): BP systolic 107–148; BP diastolic 59–85
[2019-07-27] MEDS: HYDROmorphone HCL 2 MG/ML VL IV PRN ×3 (01:29→11:36)
--- NOTE | 2019-07-27 01:30 | NUR ---
PAIN PATIENT COMPLAINED OF SEVERE BODY PAIN IV PAIN MEDICATION GIVEN WILL CONTINUE TO MONITOR
--- NOTE | 2019-07-27 01:40 | NUR ---
ICE CHIPS/ORAL CARE PATIENT FEELS DRY ORALLY ORAL CARE DONE ICE CHIPS GIVEN - TOLERATED WELL
--- NOTE | 2019-07-27 02:00 | NUR ---
PATIENT IS RESTING NOW, LOOK COMFORTABLE WILL CONTINUE TO MONITOR
[2019-07-27] MEDS: IPRATROPIUM BROM 0.5 MG/2.5ML INH SOL NEB SCH ×5 (02:16→22:09)
[2019-07-27] MEDS: ALBUTEROL SULF 2.5 MG/0.5ML(0.5%) NEB SOLN NEB SCH ×5 (02:16→22:09)
--- NOTE | 2019-07-27 03:30 | NUR ---
RESPIRATORY PATIENT'S RR 30-40/MIN, SPO2 94% PATIENT PROPPED UP SUCTIONED ORALLY ENCOURAGED TO DO COUGHING AND DEEP BREATHING EXERCISES WILL CALL RADIOLOGY TO DO CHEST XRAY NOW
--- NOTE | 2019-07-27 04:00 | NUR ---
KEPT PROPPED UP - HAVING DIFFICULTY BREATHING
[2019-07-27 04:02] LABS: Hemoglobin 9.5 g/dL (12.2-16.2)
[2019-07-27 04:06] LABS: Hematocrit 28.7 % (36.0-46.0); Mean Corpuscular Hemoglobin 30.7 pg (28.0-32.0); Mean Corpuscular Hgb Conc. 33.1 g/dL (32.0-36.0); Mean Corpuscular Volume 92.8 fL (80.0-100.0); Platelet Count (auto) 25 10^3/uL (140-450); White Blood Cell 22.7 10^3/uL (4.4-10.8)
[2019-07-27 04:12] LABS: Red Cell Distribution Width 22.7 % (11.8-14.3)
[2019-07-27 04:13] LABS: Basophils % (manual) 0 (0.0-2.0); Blast Cells 0; Eosinophils % (manual) 0 (0-7); Metamyelocytes % 0; Myelocytes % 0; Promyelocytes % 0; Reactive Lymphocytes 0
--- NOTE | 2019-07-27 04:15 | NUR ---
PATIENT IS RESTING NOW RR - 30/MIN, SPO2 98% WILL CONTINUE TO MONITOR
[2019-07-27 04:23] LABS: Albumin 2.5 g/dL (3.4-5.0); Calcium 7.2 mg/dL (8.5-10.1); Magnesium 2.1 mg/dL (1.6-2.6); Potassium 4.3 mmol/L (3.5-5.1)
[2019-07-27 04:31] LABS: Band Neutrophils % (manual) 2; Lymphocytes % (manual) 24 (10.0-50.0); Monocytes % (manual) 7 (0-12)
[2019-07-27 04:32] LABS: Bilirubin, Total 2.4 mg/dL (0.2-1.0); Phosphorus 4.2 mg/dL (2.5-4.90); Total Protein 6.9 g/dL (6.4-8.2)
[2019-07-27] MEDS: methylPREDNISolone SOD SUCC 40 MG/ML VL IV SCH ×3 (05:45→21:48)
[2019-07-27] MEDS: METOCLOPRAMIDE HCL 5MG/ml INJ 2ml VIAL IV SCH ×3 (05:47→21:47)
[2019-07-27] MEDS: MEROPENEM 1GM IVPB 100 ML IV SCH ×3 (05:48→21:48)
[2019-07-27] MEDS: ACCU-CHEK COMFORT CURVE STRIP VI SCH ×4 (06:00→23:47)
--- NOTE | 2019-07-27 06:00 | NUR ---
RESPIRATORY PATIENT IS BREATHING IN THE 30'S/MIN AGAIN. SATS 93-95% ON NC 3L/MIN. VERBALIZES SHE IS SHORT OF BREATH. WILL DRAIN PLEURX DRAIN AND GIVE BREATHING TREATMENT RT AT BEDSIDE NOTED
--- NOTE | 2019-07-27 06:35 | NUR ---
RE-ASSESS PLEURX DRAIN : RIGHT SIDE = 75MLS, LEFT SIDE = 225MLS PATIENT VERBALIZES SHE IS NOT FEELING ANY BETTER LUNG SOUNDS CLEAR TO DIMINISHED RT INFORMED. WILL DO ABG NC 4L/MIN
[2019-07-27] MEDS: InsuLIN REG 1unit/0.01ml Soln (100units/ml) SC SCH ×4 (06:42→23:48)
--- NOTE | 2019-07-27 06:45 | NUR ---
CLEANED WITH CHG WIPES LINENS CHANGED
--- NOTE | 2019-07-27 06:50 | NUR ---
PAIN PATIENT COMPLAINS OF PAIN IN THE ABDOMEN AREA. GIVEN IV PAIN MEDICATION
--- NOTE | 2019-07-27 07:20 | NUR ---
RE-ASSESS PATIENT IS RESTING NOW, BREATHING ABOUT 20'S/MIN NOW, SATS 100% HR 117-120/MIN REPORT GIVEN TO JASON TOLLIVER
[2019-07-27] MEDS: PANTOPRAZOLE 40 MG/10 ML VIAL INJ IV SCH (09:59)
--- NOTE | 2019-07-27 13:24 | NUR ---
Resumed care at 0725, orders reviewed and ongoing assessments being done. Being treated for multiple problem. Upon arrival of shift in bed sleeping but wakeful. Very weak and has a hard time speaking and only can produce a few words at a time. Unable to care for self and total care required. S/P extubation and throat is sore and having a difficult time swallowing, gave water and a few ice chips. Oral care being given as needed. Has not had any episodes of respiratory distress ( prior shift reported and episode). Maintaining on nasal cannula at 3L/min. Cough is very weak and respirations remain shallow. Right and left PleurX catheters remain in place and are closed. Dr. Bojorquez rounded at 1030. Made him aware that prior shift drained both PleurX catheters secondary to increase work of breathing. Will continue current plan of care. Dr. Moreno rounded at 1245, discussed condition and plan of care. Still a full code. Per Dr. Moreno will contact family and discuss discharge plan tomorrow, possibly to return to hospice care. Has been having chronic pain. Pain management reviewed with patient and repositioning for comfort.
[2019-07-27] MEDS: NOREPINEPHRINE 8 MG/250ML KIT 250 ML IV SCH (16:15)
[2019-07-27] MEDS ORDERED: VANCOMYCIN 500 MG in D5W 5% 100 ML IV ONE (16:30)
[2019-07-27] MEDS ORDERED: LORazepam 2MG/ML-1ML VIAL ONE (17:45)
[2019-07-27] MEDS ORDERED: MORPHINE SULF INJ 2 MG/ML SYRINGE 1ML ONE (17:45)
[2019-07-27] MEDS ORDERED: LORazepam 2MG/ML-1ML VIAL IV ONE (17:45)
[2019-07-27] MEDS: MORPHINE SULF INJ 2 MG/ML SYRINGE 1ML IV PRN (19:56)
--- NOTE | 2019-07-27 19:59 | NUR ---
At 1700 walked by room and notice monitor alarming, walked in room and pulse oximetry measuring 72% and she was slumped over to the left side. Shook her and she responded and instructed her to take deep breaths. Applied a simple mask at 10L/min and at 1703 pulse oximetry up to 98%. Heart rate up to 140 sinus tachycardia and respiratory rate >40. Breath sounds clear. Call out for RT. Brain RT at bedside and assessment made. Discussed placing on BIPAP with patient but patient did not want to wear the mask. Contacted Dr. Moreno and Dr. Bojorquez to discuss above. Placed on High Flow 30L/min with Fio2 70%. Also discussed with Dr. Moreno that she is in pain and he had discontinued Dilaudid. Continues to c/o body pain and at times abdomen pain. Per Dr. Moreno okay to give Morphine and also a one time dose of Ativan .25mg IVP, given at 1747. At 1800 calmer and respirations down to 32-36 with HR 130-136. Pulse oximetry 99%. Report given to Michael GOMEZ
[2019-07-27] MEDS ORDERED: TPN PER PHARMACY IV NR ×9 (20:00)
[2019-07-27] MEDS: EPINEPHrine HCL 250 ML IV SCH (21:24)
--- NOTE | 2019-07-27 21:45 | NUR ---
DESATURATION PATIENT REMOVED OXYGEN. SATURATION DROPPED TO 78%. PATIENT REFUSED TO KEEP THE OXYGEN BACK ON. PATIENT SAID SHE DOESN'T WANT ANYTHING. DISCUSSED THE CODE STATUS WITH THE PATIENT. PATIENT DOESN'T WANT TO BE REINTUBATED. Addendum: 07/28/19 at 0046 by Jordy Hensley RN PATIENT WANTS TO BE DNR AND SHE WANTS TO SEE HER DAUGHTER.
[2019-07-27] MEDS: ALPRAZolam 0.5 MG TAB PO SCH (22:00)
--- NOTE | 2019-07-27 22:25 | NUR ---
FAMILY CALLED PATIENT'S DAUGHTER AND TOLD HER THAT PATIENT WANTS TO BE DNR AND SHE WANTS TO SEE HER.
[2019-07-27] MEDS: INSULIN LANTUS (GLARGINE) 1 /0.01ml (100units/ml) SC SCH (23:49)
[2019-07-28] VITALS (26 sets, daily range): BP systolic 110–134; BP diastolic 60–74
--- NOTE | 2019-07-28 | NUR ---
FAMILY PATIENT'S DAUGHTER AT BEDSIDE. DISCUSSED THE PLAN OF CARE AND CODE STATUS WITH PATIENT AND HER DAUGHTER. PATIENT WANTS TO BE FULL CODE.
[2019-07-28] MEDS: MORPHINE SULF INJ 2 MG/ML SYRINGE 1ML IV PRN ×4 (01:24→19:09)
[2019-07-28 04:43] LABS: Mean Corpuscular Hemoglobin 30.9 pg (28.0-32.0); Mean Corpuscular Volume 93.2 fL (80.0-100.0)
[2019-07-28 04:45] LABS: Hematocrit 27.3 % (36.0-46.0); Mean Corpuscular Hgb Conc. 33.2 g/dL (32.0-36.0); Platelet Count (auto) 28 10^3/uL (140-450); Red Blood Cells 2.93 10^6/uL (4.0-5.20)
[2019-07-28 04:53] LABS: Red Cell Distribution Width 23.5 % (11.8-14.3)
[2019-07-28 04:54] LABS: Basophils % (manual) 0 (0.0-2.0); Blast Cells 0; Eosinophils % (manual) 0 (0-7); Metamyelocytes % 0; Myelocytes % 0; Promyelocytes % 0; Reactive Lymphocytes 0
[2019-07-28 05:03] LABS: Albumin 2.4 g/dL (3.4-5.0); Calcium 7.9 mg/dL (8.5-10.1); Magnesium 2.6 mg/dL (1.6-2.6); Potassium 4.7 mmol/L (3.5-5.1)
[2019-07-28 05:06] LABS: BUN/Creatinine Ratio 76.9; Phosphorus 4.1 mg/dL (2.5-4.90); Total Protein 6.5 g/dL (6.4-8.2)
[2019-07-28] MEDS: ACCU-CHEK COMFORT CURVE STRIP VI SCH ×4 (06:00→23:40)
[2019-07-28] MEDS: InsuLIN REG 1unit/0.01ml Soln (100units/ml) SC SCH ×4 (06:00→23:40)
[2019-07-28 06:18] LABS: Band Neutrophils % (manual) 10; Lymphocytes % (manual) 38 (10.0-50.0); Monocytes % (manual) 9 (0-12)
[2019-07-28] MEDS: METOCLOPRAMIDE HCL 5MG/ml INJ 2ml VIAL IV SCH ×3 (06:21→22:21)
[2019-07-28] MEDS: MEROPENEM 1GM IVPB 100 ML IV SCH ×3 (06:21→22:21)
[2019-07-28] MEDS: methylPREDNISolone SOD SUCC 40 MG/ML VL IV SCH ×3 (06:22→22:21)
[2019-07-28 06:31] LABS: White Blood Cell 14.9 10^3/uL (4.4-10.8)
[2019-07-28] MEDS: ALBUTEROL SULF 2.5 MG/0.5ML(0.5%) NEB SOLN NEB SCH ×3 (06:52→22:36)
[2019-07-28] MEDS: IPRATROPIUM BROM 0.5 MG/2.5ML INH SOL NEB SCH ×3 (06:52→22:36)
[2019-07-28] MEDS: ALPRAZolam 0.5 MG TAB PO SCH ×2 (09:06→22:00)
--- NOTE | 2019-07-28 09:30 | NUR ---
PAGED DR. KIRK: WAITING FOR CALL BACK PAGED TO SEE IF PO XANAX COULD BE EXCHANGED FOR IV ATIVAN INSTEAD. PENDING SWALLOW EVAL. AND PATIENT REMAINS ANXIOUS/ RESTLESS. CONTINUE CARE.
[2019-07-28] MEDS ORDERED: LORazepam 2MG/ML-1ML VIAL IV ONE (10:00)
[2019-07-28] MEDS: LORazepam 2MG/ML-1ML VIAL IV PRN ×3 (10:13→13:45)
--- NOTE | 2019-07-28 11:58 | NUR ---
Respiratory note: PATIENT BECOMING INCREASINGLY TACHYPNEIC AND SHOWING SIGNS OF SOB. FLOW INCREASED TO 40LPM AT THIS TIME TO ASSIST WITH PATIENTS DEMAND. JASON LOVELACE, COVERING FOR JASON HOSKINS, WAS NOTIFIED OF PATIENTS CONDITION AND FLOW CHANGE.
--- NOTE | 2019-07-28 12:01 | NUR ---
SWALLOW EVALUATED. PATIENT VERY WEAK AND ALOC. UNABLE TO INITIATE SWALLOW. REQUIRED BOLUS REMOVAL. UNSAFE FOR PO INTAKE AT THIS TIME. NURSING NOTIFIED.
[2019-07-28] MEDS: PANTOPRAZOLE 40 MG/10 ML VIAL INJ IV SCH (13:30)
--- NOTE | 2019-07-28 13:58 | NUR ---
Respiratory note: 1400 MED-NEB HELD MEDICATION IS CONTRAINDICATED DUE TO TACHYCARDIA. PULSE CURRENTLY 137BPM. JASON HOSKINS MADE AWARE OF HELD TX.
[2019-07-28] MEDS: NOREPINEPHRINE 8 MG/250ML KIT 250 ML IV SCH (14:52)
--- NOTE | 2019-07-28 16:17 | NUR ---
re-assessment Per consult for discharge plan. I spoke with patients daughter Hannah and per Hannah patient will return home with her on discharge and resume [facility]. Addendum: 07/28/19 at 1623 by Marie Patterson Amended: Links added.
[2019-07-28] MEDS ORDERED: LORazepam 2MG/ML-1ML VIAL IV PRN (19:45)
[2019-07-28] MEDS ORDERED: TPN PER PHARMACY IV NR ×7 (20:00)
[2019-07-28] MEDS ORDERED: methylPREDNISolone SOD SUCC 40 MG/ML VL ONE (20:28)
[2019-07-28] MEDS: EPINEPHrine HCL 250 ML IV SCH (21:24)
[2019-07-28] MEDS: INSULIN LANTUS (GLARGINE) 1 /0.01ml (100units/ml) SC SCH (22:00)
[2019-07-28] MEDS ORDERED: D5W 5% 1,000 ML IV SCH (23:45)
[2019-07-29] VITALS (27 sets, daily range): BP systolic 94–124; BP diastolic 47–75
--- NOTE | 2019-07-29 02:40 | NUR ---
PLACEMENT OF NGT DIFFICULTDUE TO PT'S ETREME DISCOMFORT. NOTED THE PLT. COUNT TO BE LOW AND PT'S TENDENCY TO BLEED LONGER AT PUNCTURE SITES.FOR NA LEVEL OF152 ORDERED NGT FOR WATER ADMIN. VS IV D5W. SECOND OPTION FAVORED.
[2019-07-29] MEDS: MORPHINE SULF INJ 2 MG/ML SYRINGE 1ML IV PRN ×4 (04:01→20:20)
[2019-07-29] MEDS: METOCLOPRAMIDE HCL 5MG/ml INJ 2ml VIAL IV SCH ×3 (05:13→22:00)
[2019-07-29] MEDS: methylPREDNISolone SOD SUCC 40 MG/ML VL IV SCH ×3 (05:13→22:00)
[2019-07-29] MEDS: MEROPENEM 1GM IVPB 100 ML IV SCH ×3 (05:14→22:00)
[2019-07-29] MEDS: InsuLIN REG 1unit/0.01ml Soln (100units/ml) SC SCH ×3 (05:33→18:14)
[2019-07-29] MEDS: ACCU-CHEK COMFORT CURVE STRIP VI SCH ×3 (05:33→18:12)
[2019-07-29 06:56] LABS: Hematocrit 27.2 % (36.0-46.0); Mean Corpuscular Hemoglobin 30.9 pg (28.0-32.0); Mean Corpuscular Volume 93.4 fL (80.0-100.0); Platelet Count (auto) 35 10^3/uL (140-450); Red Blood Cells 2.91 10^6/uL (4.0-5.20); White Blood Cell 10.1 10^3/uL (4.4-10.8)
[2019-07-29 07:05] LABS: INR 1.15 (0.9-1.15); Partial Thromboplastin Time 30.6 sec (23.64-32.05)
[2019-07-29 07:08] LABS: Red Cell Distribution Width 23.7 % (11.8-14.3)
[2019-07-29 07:10] LABS: Basophils % (manual) 0 (0.0-2.0); Blast Cells 0; Eosinophils % (manual) 0 (0-7); Myelocytes % 0; Promyelocytes % 0; Reactive Lymphocytes 0
[2019-07-29] MEDS: ALBUTEROL SULF 2.5 MG/0.5ML(0.5%) NEB SOLN NEB SCH ×3 (07:12→22:42)
[2019-07-29] MEDS: IPRATROPIUM BROM 0.5 MG/2.5ML INH SOL NEB SCH ×3 (07:12→22:43)
[2019-07-29 07:28] LABS: Potassium 3.4 mmol/L (3.5-5.1)
[2019-07-29 07:33] LABS: BUN/Creatinine Ratio 82.2; Bilirubin, Total 1.8 mg/dL (0.2-1.0); Calcium 8.2 mg/dL (8.5-10.1); Magnesium 2.8 mg/dL (1.6-2.6); Phosphorus 3.7 mg/dL (2.5-4.90); Total Protein 6.2 g/dL (6.4-8.2)
[2019-07-29 07:37] LABS: Band Neutrophils % (manual) 11; Lymphocytes % (manual) 38 (10.0-50.0); Metamyelocytes % 2; Monocytes % (manual) 5 (0-12)
[2019-07-29] MEDS ORDERED: POTASSIUM PHOSPHATE 22 MEQ in SODIUM CHL 0.9% 100 ML IV ONE (08:45)
[2019-07-29] MEDS: PANTOPRAZOLE 40 MG/10 ML VIAL INJ IV SCH (09:42)
[2019-07-29] MEDS: ALPRAZolam 0.5 MG TAB PO SCH ×2 (09:42→22:00)
[2019-07-29] MEDS: D5W 5% 1,000 ML IV SCH ×2 (10:00→22:30)
--- NOTE | 2019-07-29 12:47 | NUR ---
DR. REDDY ROUNDING ON PT NO NEW ORDERS RECEIVED.
--- NOTE | 2019-07-29 14:07 | NUR ---
RT NOTE: TX HELD DUE TO HR BETWEEN 125-130. RN IS BEDSIDE. FLOW DECREASED FROM 30L TO 20L. TOLERATING WELL. WILL CONTINUE TO MONITOR AND TITRATE HIGH FLOW.
--- NOTE | 2019-07-29 15:10 | NUR ---
RT NOTE: PT TAKEN OFF OF HIGH FLOW AND PLACED ONTO 5L OXYMIZER THEN TITRATED TO 4L OXYMIZER. SPO2 HOLDING AT 100%. NO SIGNS OF DISTRESS NOTED. RN AWARE. WILL CONTINUE TO MONITOR.
--- NOTE | 2019-07-29 15:33 | NUR ---
DR. KIRK ROUNDED ON PT. I NOTIFIED HIM OF PT'S PAIN NOT BEING COMPLETELY COVERED BY MS Q4 4. I REQUESTED TO CHANGE THE FREQUENCY TO Q 3 HOURS FROM WHEN PT IS HAVING A LOT OF PAIN. OK FOR PT TO HAVE THE FREQUENCY OF MS CHANGED. HE ASKED IF PT IS RECEIVING XANAX BID I TOLD HIM, YES PT IS RECEIVING XANAX SCHEDULE. HE PLANS ON CALLING PT'S DAUGHTER AND SEEN IF PT CAN BE DISCHARGE HOME ON HOSPICE. PT JUST GOT SWITCHED TO AN OXYMIZER AT 5L BY ART AT 1516.
[2019-07-29] MEDS: NOREPINEPHRINE 8 MG/250ML KIT 250 ML IV SCH (16:15)
--- NOTE | 2019-07-29 19:30 | NUR ---
OPENING NOTE RECEIVED REPORT FROM DAY SHIFT RN AND ASSUMED CARE OF PT. PT CURRENTLY RESTING ASLEEP IN BED. WHEN AWAKENED, PT CAN ONLY STATE HER NAME, SHE IS UNAWARE OF LOCATION OR SITUATION. OXYMIZER AT 4L APPLIED AND SATS >95%. VITAL SIGNS STABLE WITH NO S/S OF DISTRESS NOTED. DUFF CATHETER IN TACT AND DRAINING APPROPRIATELY TO GRAVITY. BED IS LOCKED IN LOWEST POSITION. SIDE RAILS UP. EDUCATED PT ATHLETIC TEAM PHYSICIAN LIGHT USE. CALL LIGHT WITHIN REACH. PAIN MANAGEMENT INITIATED FOR PT NODDING "YES" TO PAIN AND "YES" TO PAIN 8/10 WHEN USING NUMERICAL PAIN SCALE. REPOSITIONED PT AND IV MORPHINE TO FOLLOW. WILL CONTINUE TO MONITOR AND ASSESS.
[2019-07-29] MEDS ORDERED: TPN PER PHARMACY IV NR ×6 (20:00)
--- NOTE | 2019-07-29 20:15 | NUR ---
PARTIAL JENI CHANGE DONE. SKIN ASSESSED WITH MASD AND SKIN EROSION NOTED IN SACRAL/GEREMIAS AREA. ABNORMAL VAGINAL BLEEDING NOTED WHEN JENI CHANGE WAS DONE. CLEANED PT AND NEW OPTIFOAM APPLIED TO RIGHT SACRAL AREA. WILL RECHANGE DRESSINGS AND DO FULL JENI CHANGE LATER THIS EVENING.
[2019-07-29] MEDS: EPINEPHrine HCL 250 ML IV SCH (21:24)
[2019-07-29] MEDS: INSULIN LANTUS (GLARGINE) 1 /0.01ml (100units/ml) SC SCH (22:01)
[2019-07-30] VITALS (17 sets, daily range): BP systolic 91–147; BP diastolic 51–68
[2019-07-30] MEDS: ACCU-CHEK COMFORT CURVE STRIP VI SCH ×3 (00:30→12:42)
[2019-07-30] MEDS: MORPHINE SULF INJ 2 MG/ML SYRINGE 1ML IV PRN ×2 (00:30→03:35)
--- NOTE | 2019-07-30 03:15 | NUR ---
BATH/JENI CHANGE GAVE PT CHG BATH. DID GEREMIAS CARE FOR ABNORMAL VAGINAL BLEEDING (MDS AWARE). FULL JENI CHANGE DONE. ORAL CARE PREFORMED. PT TURNED WITH ALL 4 EXTREMITIES ELEVATED AND OFFLOADED WITH PILLOWS.
[2019-07-30 04:16] LABS: White Blood Cell 11.8 10^3/uL (4.4-10.8)
[2019-07-30 04:20] LABS: Hematocrit 26.6 % (36.0-46.0); Hemoglobin 8.6 g/dL (12.2-16.2); Mean Corpuscular Hemoglobin 30.6 pg (28.0-32.0); Mean Corpuscular Hgb Conc. 32.4 g/dL (32.0-36.0); Mean Corpuscular Volume 94.2 fL (80.0-100.0); Platelet Count (auto) 34 10^3/uL (140-450); Red Blood Cells 2.82 10^6/uL (4.0-5.20)
[2019-07-30 04:36] LABS: Potassium 3.1 mmol/L (3.5-5.1)
[2019-07-30 04:44] LABS: Albumin 1.9 g/dL (3.4-5.0); BUN/Creatinine Ratio 86.6; Bilirubin, Total 1.8 mg/dL (0.2-1.0); Calcium 7.9 mg/dL (8.5-10.1); Magnesium 2.6 mg/dL (1.6-2.6); Phosphorus 5.1 mg/dL (2.5-4.90); Total Protein 6.2 g/dL (6.4-8.2)
[2019-07-30 04:55] LABS: Basophils % (manual) 0 (0.0-2.0); Blast Cells 0; Eosinophils % (manual) 0 (0-7); Metamyelocytes % 0; Myelocytes % 0; Promyelocytes % 0; Reactive Lymphocytes 0
--- NOTE | 2019-07-30 05:34 | NUR ---
PAGED DR. REDDY IN REGARDS TO PTS LATEST LAB LEVELS. AWAITING CALLBACK.
[2019-07-30 05:52] LABS: Band Neutrophils % (manual) 11; Lymphocytes % (manual) 36 (10.0-50.0); Monocytes % (manual) 4 (0-12)
[2019-07-30] MEDS: MEROPENEM 1GM IVPB 100 ML IV SCH (05:57)
[2019-07-30] MEDS: methylPREDNISolone SOD SUCC 40 MG/ML VL IV SCH (05:57)
[2019-07-30] MEDS: METOCLOPRAMIDE HCL 5MG/ml INJ 2ml VIAL IV SCH (05:57)
[2019-07-30] MEDS: InsuLIN REG 1unit/0.01ml Soln (100units/ml) SC SCH ×3 (06:01→12:45)
[2019-07-30] MEDS: IPRATROPIUM BROM 0.5 MG/2.5ML INH SOL NEB SCH ×2 (06:18→13:48)
[2019-07-30] MEDS: ALBUTEROL SULF 2.5 MG/0.5ML(0.5%) NEB SOLN NEB SCH ×2 (06:18→13:48)
--- NOTE | 2019-07-30 08:00 | NUR ---
AM ASSESSMENT COMPLETED. ORAL CARE RENDERED. REPOSITIONED FOR COMFORT.
[2019-07-30] MEDS ORDERED: POTASSIUM CHLORIDE 40 MEQ, LIDOCAINE 1% (LOCAL ANESTH.) 4 ML in SODIUM CHL 0.9% 100 ML IV ONE (10:00)
[2019-07-30] MEDS ORDERED: D5W 5% 1,000 ML IV SCH (10:00)
[2019-07-30] MEDS: PANTOPRAZOLE 40 MG/10 ML VIAL INJ IV SCH (10:47)
[2019-07-30] MEDS: ALPRAZolam 0.5 MG TAB PO SCH (10:48)
--- NOTE | 2019-07-30 10:58 | NUR ---
DR. KIRK CALLED, HE WANTS PT TO BE TRANSFERRED HOME ON HOSPICE. PT TO BE WEANED OFF TPN. PLACED A SOCIAL SERVICE CONSULTATION FOR DISCHARGE PLANNING.
--- NOTE | 2019-07-30 12:11 | NUR ---
re-assessment Per consult discharge on [facility] today. Per Hannah patients daughter she does want to resume with [facility]. MD ribeiro has been sent to [facility]. Per Emile at [facility] transportation will be here at 330pm to transport patient home and a hospice nurse will meet patient at home post discharge. Per Shanna GOMEZ patients daughter is concerned about feedings. Per RN she is trying to contact MD for discharge orders for feeding. As of now transport stands at 330pm Addendum: 07/30/19 at 1217 by Marie Patterson Amended: Links added.
--- NOTE | 2019-07-30 13:37 | NUR ---
LT LUNG PLEURAX DRAINED 50 ML OF SEROSANGUINEOUS FLUID. RT LUNG DRAINED 350 ML OF DARK LUCIANA ICE TEA COLOR FLUID. CXR TAKEN AT THIS TIME TO VERIFY NGT PLACEMENT.
--- NOTE | 2019-07-30 14:29 | NUR ---
SWALLOW EVALUATION FOLLOW UP. PATIENT REMAINS UNSAFE FOR PO INTAKE UNABLE TO INITIAL SWALLOW. NURSING NOTIFIED.
--- NOTE | 2019-07-30 14:40 | NUR ---
NUTRITION FOLLOWUP NOTES Pt wt is 72.0 kg Pt is extubated, sleeping, still swallow impaired, with TPN @ 64 ml/hr, providing 1540 kcals, 80g protein, 1220 NPcs, and 7% fat. Pt with adequate energy intake from PN support aeb 83% to 103% of est caloric needs. Protein intake from PN support is adequate aeb 82% to 107% protein needs. . Will continue to monitor NPO status, skin status, pertinent labs and weight trends. Will f/u in 2 to 3 days. Est. Energy Needs: 1052-9536 kcal (20-25 kcal/kg BW). Est. Protein Needs: 75-97 gms/day (1.0-1.3 gms/kg BW). Will continue to monitor pertinent labs and reassess nutrient need prn LABS: NA 154 H, POT 3.1 L, BUN 110 H, CR 1.27 H, GFR 46 L, GLUC 272 H, CA 7.9 L, ALB 1.9 L, TP 6.2 L GI: No BM since 07/18/19 per printing press machine operator BS: 11 high risk, MASD. Please refer to wound assessment report for full details. PES: Problem 1) Altered nutrition related lab values r/t current medical condition 2) Inadequate nutrient intake r/t current energy and protein needs Comments Will continue to monitor NPO status, skin status, pertinent labs and weight trend. F/u in 2 to 3 days. Recommendations: 1) If still NPO in 48 hours, consider initiating EN support with Jevity 1.2 Josesito @60 ml/hr goal rate, as tolerated. 2) Advance gradually to oral 2g Na diet when medically appropriate. 3) Continue current plan of care.
--- NOTE | 2019-07-30 15:30 | NUR ---
NGT REPLACED INSERTED ON LT NOSTRIL, VERIFIED BY 2 RN'S BY INJECTING AIR INTO THE STOMACH.
--- NOTE | 2019-07-30 15:44 | NUR ---
CENTRAL LINE REMOVED AND MIDLINE REMOVED.
--- NOTE | 2019-07-30 15:45 | NUR ---
WOUND PICTURES TAKEN PRIOR TO DISCHARGE HOME ON HOSPICE. RE-SWAB FOR MRSA.
[2019-07-30] MEDS ORDERED: TPN PER PHARMACY IV NR ×9 (20:00)
== END 2019-07-30 16:19 | disposition hospice, home (50) | DRG 720 ==
LOC: EDBD 12:36 → ER 12:36 → ICU WEST 12:37
PROVIDERS: ADMIT Internal Medicine; ATTEND Internal Medicine
PROC: 5A1955Z Respiratory Ventilation, Greater than 96 Consecutive Hours (ICD-10-PCS; principal; 2019-07-17)
PROC: 0BH17EZ Insertion of Endotracheal Airway into Trachea, Via Natural or Artificial Opening (ICD-10-PCS; 2019-07-17)
PROC: 02HV33Z Insertion of Infusion Device into Superior Vena Cava, Percutaneous Approach (ICD-10-PCS; 2019-07-17)
PROC: 30233N1 Transfusion of Nonautologous Red Blood Cells into Peripheral Vein, Percutaneous Approach (ICD-10-PCS; 2019-07-18)
PROC: 30233R1 Transfusion of Nonautologous Platelets into Peripheral Vein, Percutaneous Approach (ICD-10-PCS; 2019-07-18)
PROC: 30233L1 Transfusion of Nonautologous Fresh Plasma into Peripheral Vein, Percutaneous Approach (ICD-10-PCS; 2019-07-19)
PROC: 0W9930Z Drainage of Right Pleural Cavity with Drainage Device, Percutaneous Approach (ICD-10-PCS; 2019-07-22)
PROC: 0W9330Z Drainage of Oral Cavity and Throat with Drainage Device, Percutaneous Approach (ICD-10-PCS; 2019-07-24)
DX: A41.9 Sepsis, unspecified organism (principal); J96.21 Acute and chronic respiratory failure with hypoxia; R65.21 Severe sepsis with septic shock; E43 Unspecified severe protein-calorie malnutrition; G93.41 Metabolic encephalopathy; J18.9 Pneumonia, unspecified organism; J11.00 Influenza due to unidentified influenza virus with unspecified type of pneumonia; J91.0 Malignant pleural effusion; N17.9 Acute kidney failure, unspecified; N18.3 Chronic kidney disease, stage 3 (moderate); E66.01 Morbid (severe) obesity due to excess calories; B17.9 Acute viral hepatitis, unspecified; K72.90 Hepatic failure, unspecified without coma; D64.89 Other specified anemias; C50.919 Malignant neoplasm of unspecified site of unspecified female breast; D64.9 Anemia, unspecified; E83.52 Hypercalcemia; E87.70 Fluid overload, unspecified; I47.1 Supraventricular tachycardia; D63.8 Anemia in other chronic diseases classified elsewhere; E83.42 Hypomagnesemia; E87.0 Hyperosmolality and hypernatremia; E87.1 Hypo-osmolality and hyponatremia; E87.6 Hypokalemia; I12.9 Hypertensive chronic kidney disease with stage 1 through stage 4 chronic kidney disease, or unspecified chronic kidney disease; D69.6 Thrombocytopenia, unspecified; J45.909 Unspecified asthma, uncomplicated; Z79.51 Long term (current) use of inhaled steroids; Z79.899 Other long term (current) drug therapy; Z74.01 Bed confinement status; Z68.25 Body mass index [BMI] 25.0-25.9, adult; Z88.4 Allergy status to anesthetic agent; Z88.1 Allergy status to other antibiotic agents; Z03.818 Encounter for observation for suspected exposure to other biological agents ruled out
CPT/HCPCS: 10022; 36415; 36600; 71045; 74018; 76775; 76856; 80048; 80053; 80074; 80076; 80202; 81001; 82040; 82570; 82607; 82728; 82805; 82962; 83010; 83036; 83540; 83550; 83605; 83615; 83735; 83880; 84100; 84132; 84156; 84300; 84443; 84478; 84484; 85007; 85025; 85027; 85045; 85379; 85384; 85610; 85730; 86850; 86880; 86900; 86901; 86920; 87040; 87070; 87077; 87081; 87186; 87205; 87804; 87880; 92507; 92610; 93005; 94002; 94003; 94640; 96365; 96367; 96375; 99291; C9113; G0378; G9035; J0153; J0171; J0330; J0610; J0696; J1815; J2001; J2185; J2250; J3480; J7060; J7131; P9047